=== PATIENT | male | born 1990 | race Hispanic/Latino ===

== ENCOUNTER 2017-12-10 17:58 | Emergency (ER) | payer SELFPAY ==
--- OUTSIDE RECORDS SUMMARY | 2017-12-10 18:01 | XMS REPORT | Clinical Summary ---
:1990 Author Organization [facility] Address [address] [place] [address] Care Team Providers Name Role Phone Asked, No Pcp Primary Care Provider Unavailable Allergies No Known Allergies Current Medications Prescription Sig. Disp. Refills Start Date End Date Status etodolac (LODINE) 500 Take 1 tablet 15 tablet 0 08/08/2017 08/18/2017 MG tablet (500 mg total) by mouth 2 (two) times a day as needed (pain) for up to 10 days. Active Problems Not on file Encounters Date Type Specialty Care Team Description 08/07/2017 - Emergency Emergency Medicine Homero Roa, Flank pain ( Primary Dx); 08/08/2017 MD Tachycardia after 12/09/2016 Social History Tobacco Use Types Packs/Day Years Used Date Light Tobacco Smoker Cigarettes Smokeless Tobacco: Never Used Comments: rarely. Alcohol Use Drinks/Week oz/Week Comments No Sex Assigned at Date Recorded Not on file Last Filed Vital Signs Vital Sign Reading Time Taken Blood Pressure 148/80 08/08/2017 2:00 AM CDT Pulse 91 08/08/2017 2:00 AM CDT Temperature 37.2 C (98.9 F) 08/08/2017 2:00 AM CDT Respiratory Rate 15 08/08/2017 2:00 AM CDT Oxygen Saturation 98% 08/08/2017 2:00 AM CDT Inhaled Oxygen Concentration - - Weight - - Height 182.9 cm (6') 08/07/2017 9:08 PM CDT Body Mass Index - - Plan of Treatment Health Maintenance Due Date Last Done Comments INFLUENZA VACCINE 09/14/2017 Procedures Procedure Name Priority Date/Time Associated Comments Diagnosis URINE DRUGS OF ABUSE STAT 08/08/2017 12:35 Results for this SCREEN AM CDT procedure are in the results section. URINALYSIS SCREEN AND STAT 08/08/2017 12:29 Results for this MICROSCOPY, WITH REFLEX AM CDT procedure are in TO CULTURE the results section. URINE CULTURE STAT 08/08/2017 12:29 Results for this AM CDT procedure are in the results section. CREATINE KINASE, TOTAL STAT 08/08/2017 12:26 Results for this (CPK) AM CDT procedure are in the results section. CT RENAL STONE PROTOCOL STAT 08/07/2017 10:29 Results for this PM CDT procedure are in the results section. XR CHEST 1 VW PORTABLE STAT 08/07/2017 10:01 Results for this PM CDT procedure are in the results section. ZZESTIMATED GFR STAT 08/07/2017 9:40 Results for this PM CDT procedure are in the results section. TROPONIN STAT 08/07/2017 9:40 Results for this PM CDT procedure are in the results section. LIPASE LEVEL STAT 08/07/2017 9:40 Results for this PM CDT procedure are in the results section. COMPREHENSIVE METABOLIC STAT 08/07/2017 9:40 Results for this PANEL PM CDT procedure are in the results section. PARTIAL THROMBOPLASTIN STAT 08/07/2017 9:40 Results for this TIME (PTT) PM CDT procedure are in the results section. PROTHROMBIN TIME WITH STAT 08/07/2017 9:40 Results for this INR PM CDT procedure are in the results section. HC COMPLETE BLD COUNT STAT 08/07/2017 9:40 Results for this W/AUTO DIFF PM CDT procedure are in the results section. ECG 12-LEAD STAT 08/07/2017 9:28 Results for this PM CDT procedure are in the results section. ECG ED PRELIMINARY Routine 08/07/2017 9:15 Results for this INTERPRETATION PM CDT procedure are in the results section. after 12/09/2016 Results Urine drugs of abuse screen (08/08/2017 12:35 AM) Amphetamine screen, urine Negative [facility] DEPARTMENT OF PATHOLOGY AND GENOMIC MEDICINE Methamphetamine screen, Negative [facility] DEPARTMENT OF urine PATHOLOGY AND GENOMIC MEDICINE Barbiturate screen, urine Negative [facility] DEPARTMENT OF PATHOLOGY AND GENOMIC MEDICINE Benzodiazepine screen, urine Negative [facility] DEPARTMENT OF PATHOLOGY AND GENOMIC MEDICINE Cocaine screen, urine Negative [facility] DEPARTMENT OF PATHOLOGY AND GENOMIC MEDICINE Methadone screen, urine NT [facility] DEPARTMENT OF PATHOLOGY AND GENOMIC MEDICINE Opiates screen, urine Negative [facility] DEPARTMENT OF PATHOLOGY AND GENOMIC MEDICINE Phencyclidine screen, urine NT [facility] DEPARTMENT OF PATHOLOGY AND GENOMIC MEDICINE Cannabinoid screen, urine Negative [facility] DEPARTMENT OF PATHOLOGY AND GENOMIC MEDICINE Tricyclic screen, urine NT [facility] DEPARTMENT OF Comment: PATHOLOGY AND GENOMIC Drug screen minimum concentration of detectability MEDICINE Xuoewdqtshgc0325 ng/mL Spqyphjqmfavndul7019 ng/mL Barbiturates 300 ng/mL Wuimtdfcqixuptw000 ng/mL Hydyizk605 ng/mL Hlwfbbfjh930 ng/mL Voqyhvf879 ng/mL Phencyclidine 25 ng/mL Hvohcsahooru33 ng/mL Rcrmcpfcld4255 ng/mL Negative test results indicates presumptive evidence of lack of clinically significant drug concentration in this urine specimen. Positive test results are presumptive evidence of clinically significant drug concentration in this urine specimen. Testing performed for medical purposes only. Specimen Urine Performing Organization Address City/State/Zipcode Phone Number [facility] DEPARTMENT OF PATHOLOGY AND [address] [place] [address] GENOMIC MEDICINE Urinalysis screen and microscopy, with reflex to culture (08/08/2017 12:29 AM) Specimen site Clean catch [facility] DEPARTMENT OF PATHOLOGY AND GENOMIC MEDICINE Color, UA Alyx [facility] DEPARTMENT OF PATHOLOGY AND GENOMIC MEDICINE Appearance, UA Cloudy [facility] DEPARTMENT OF PATHOLOGY AND GENOMIC MEDICINE Specific gravity, UA 1.040 (H) 1.001 - 1.035 [facility] DEPARTMENT OF PATHOLOGY AND GENOMIC MEDICINE pH, UA 5.0 5.0 - 8.5 [facility] DEPARTMENT OF PATHOLOGY AND GENOMIC MEDICINE Protein, UA 1+ (A) Negative [facility] DEPARTMENT OF PATHOLOGY AND GENOMIC MEDICINE Glucose, UA Negative Negative [facility] DEPARTMENT OF PATHOLOGY AND GENOMIC MEDICINE Ketones, UA Negative Negative [facility] DEPARTMENT OF PATHOLOGY AND GENOMIC MEDICINE Bilirubin, UA Negative Negative [facility] DEPARTMENT OF PATHOLOGY AND GENOMIC MEDICINE Blood, UA Negative Negative [facility] DEPARTMENT OF PATHOLOGY AND GENOMIC MEDICINE Nitrite, UA Negative Negative [facility] DEPARTMENT OF PATHOLOGY AND GENOMIC MEDICINE Urobilinogen, UA 2.0 (A) <2.0 [facility] DEPARTMENT OF PATHOLOGY AND GENOMIC MEDICINE Leukocyte esterase, UA Negative Negative [facility] DEPARTMENT OF PATHOLOGY AND GENOMIC MEDICINE WBC, UA 0-5 0 - 1 /HPF [facility] DEPARTMENT OF PATHOLOGY AND GENOMIC MEDICINE RBC, UA 6-10 (H) 0 - 5 /HPF [facility] DEPARTMENT OF PATHOLOGY AND GENOMIC MEDICINE Bacteria, UA None seen None seen [facility] DEPARTMENT OF PATHOLOGY AND GENOMIC MEDICINE Yeast, UA None seen [facility] DEPARTMENT OF PATHOLOGY AND GENOMIC MEDICINE Yeast with pseudohyphae, UA None seen [facility] DEPARTMENT OF PATHOLOGY AND GENOMIC MEDICINE Hyaline casts, UA 11-20 /LPF [facility] DEPARTMENT OF PATHOLOGY AND GENOMIC MEDICINE Specimen Urine Performing Organization Address [facility] Phone Number [facility] DEPARTMENT OF PATHOLOGY AND [address] [place] [address] [address] [place] Urine culture (08/08/2017 12:29 AM) Urine culture SEE COMMENTComment: Bacteriuria [facility] DEPARTMENT OF PATHOLOGY screen negative. AND GENOMIC MEDICINE Specimen Urine Performing Organization Address [facility] Phone Number [facility] DEPARTMENT OF PATHOLOGY AND [id number] [place] [address] [place] [id number] [place] [address] Creatine kinase, total (CPK) (08/08/2017 12:26 AM) Creatine kinase 296 39 - 308 U/L [facility] DEPARTMENT OF PATHOLOGY AND GENOMIC MEDICINE Specimen Plasma specimen Performing Organization Address [facility] Phone Number [facility] DEPARTMENT OF PATHOLOGY AND [address] [place] [address] [address] Renal Stone Protocol (08/07/2017 10:29 PM) Narrative Performed At CT RENAL STONE PROTOCOL [facility] CLINICAL INDICATION:L flank pain TECHNIQUE: Multidetector CT of the abdomen and pelvis was performed following intravenous administration of iodinated contrast with multiplanar reformats. CT scans are performed using radiation dose reduction techniques (iterative reconstruction and/or automated exposure control). Technical factors are evaluated and adjusted to ensure appropriate moderation of exposure. Automated dose management technology is applied to adjust radiation exposure while achieving a diagnostic quality image. COMPARISON:None. FINDINGS: Lung bases:Clear. Liver:Normal. Gallbladder and biliary:The gallbladder is absent. Clips within the gallbladder fossa. Pancreas:Normal. Spleen:Normal. Gastrointestinal:Large and small bowel are normal in caliber. Appendix is visualized and appears normal. Adrenals:Normal. Kidneys and ureters:No mass or hydronephrosis. Urinary bladder:Normal. Lymph nodes:No enlarged lymph nodes in the abdomen or pelvis. Peritoneum:No ascites or free air. Vascular:Unremarkable. Reproductive organs:Normal prostate gland and seminal vesicles. Abdominal wall: Fat-containing inguinal hernias bilaterally. Bones:No acute osseous abnormalities. IMPRESSION: Negative CT for acute pathology within the abdomen and pelvis. [facility]-[id number] Procedure Note Interface, Radiology Results Incoming - 08/07/2017 10:[address] RENAL STONE PROTOCOL CLINICAL INDICATION: L flank pain TECHNIQUE: Multidetector CT of the abdomen and pelvis was performed following intravenous administration of iodinated contrast with multiplanar reformats. CT scans are performed using radiation dose reduction techniques (iterative reconstruction and/or automated exposure control). Technical factors are evaluated and adjusted to ensure appropriate moderation of exposure. Automated dose management technology is applied to adjust radiation exposure while achieving a diagnostic quality image. COMPARISON: None. FINDINGS: Lung bases: Clear. Liver: Normal. Gallbladder and biliary: The gallbladder is absent. Clips within the gallbladder fossa. Pancreas: Normal. Spleen: Normal. Gastrointestinal: Large and small bowel are normal in caliber. Appendix is visualized and appears normal. Adrenals: Normal. Kidneys and ureters: No mass or hydronephrosis. Urinary bladder: Normal. Lymph nodes: No enlarged lymph nodes in the abdomen or pelvis. Peritoneum: No ascites or free air. Vascular: Unremarkable. Reproductive organs: Normal prostate gland and seminal vesicles. Abdominal wall: Fat-containing inguinal hernias bilaterally. Bones: No acute osseous abnormalities. IMPRESSION: Negative CT for acute pathology within the abdomen and pelvis. [facility]-[id number] Performing Organization Address [facility] Phone Number [facility] [address] [place] [address] XR Chest 1 Vw Portable (08/07/2017 10:01 PM) Narrative Performed At EXAMINATION: XR CHEST 1 VW PORTABLE [facility] CLINICAL HISTORY: SOB COMPARISON:10/16/2011 chest x-ray. IMPRESSION: The lungs are clear. No pleural effusion or pneumothorax. The cardiomediastinal silhouette is normal. No acute osseous abnormalities. [facility]-[id number] Procedure Note [facility], Radiology Results Incoming - 08/07/2017 10:05 PM CDT EXAMINATION: XR CHEST 1 VW PORTABLE CLINICAL HISTORY: SOB COMPARISON: 10/16/2011 chest x-ray. IMPRESSION: The lungs are clear. No pleural effusion or pneumothorax. The cardiomediastinal silhouette is normal. No acute osseous abnormalities. [facility]-[id number] Performing Organization Address [facility] Phone Number [employer] [address] [place] [address] Estimated GFR (08/07/2017 9:40 PM) GFR Non Af Amer 81 mL/min/1.73 m2 [facility] DEPARTMENT OF PATHOLOGY AND [facility] GFR Af Amer >90 mL/min/1.73 m2 [facility] DEPARTMENT OF Comment: PATHOLOGY AND [facility] Chronic kidney disease: <60 mL/min/1.73m2 MEDICINE Kidney failure: <15 mL/min/1.73m2 The estimated GFR is calculated from the IDMS-traceable Modification of Diet in Renal Disease Equation. The accuracy of the calculation is poor when the creatinine is normal. Calculated values >90 mL/min/1.73m2 are not reported. This equation has not been validated in children (<18 years), women, the elderly (>70 years), or ethnic groups other than Caucasians and Americans. Specimen Plasma specimen Performing Organization Address [facility] Phone Number [facility] AND [address] [place] [address] [address] Troponin (08/07/2017 9:40 PM) Troponin <0.300 0.000 - 0.300 ng/mL [facility] DEPARTMENT OF Comment: PATHOLOGY AND [facility] 0.30 - 1.49 ng/mlMay indicate increased risk of acute MEDICINE coronary syndrome. >=1.5 ng/mlConsistent with acute myocardial infarction. The diagnostic value of a single normal or non-diagnostic result is questionable.Serial samples at 2-6 hour intervals are required to rule out acute myocardial injury. Specimen Plasma specimen Performing Organization Address [facility] Phone Number [facility] AND [address] [place] [address] [place] [address] [facility] Partial thromboplastin time, activated (08/07/2017 9:40 PM) PTT 30.7 23.0 - 36.0 sec [facility] DEPARTMENT OF Comment: PATHOLOGY AND [facility] PTT therapeutic range for unfractionated heparin is MEDICINE 61.0-112.0 seconds which corresponds to Anti-Xa 0.3-0.7 U/ml. Specimen Blood Performing Organization Address [facility] Phone Number [facility] AND [address] [place] [address] Dr [place], [place] [phone] [place] [address] Prothrombin time with INR (08/07/2017 9:40 PM) Prothrombin time 13.7 12.0 - 15.0 sec [facility] DEPARTMENT OF PATHOLOGY AND GENOMIC MEDICINE INR 1.0 [facility] DEPARTMENT OF Comment: PATHOLOGY AND GENOMIC The International Normalized Ratio (INR) is a therapeutic MEDICINE monitoring tool for patients who are stable on oral anticoagulant therapy. An INR of 2.0-3.0 is suggested for deep vein thrombosis/pulmonary embolism. Specimen Blood Performing Organization Address [facility] Phone Number [facility] DEPARTMENT OF PATHOLOGY AND [address] [place] [address] [place] [address] [facility] CBC with platelet and differential (08/07/2017 9:40 PM) WBC 16.45 (H) 4.50 - 11.00 k/uL [facility] DEPARTMENT OF PATHOLOGY AND GENOMIC MEDICINE RBC 5.50 4.40 - 6.00 m/uL [facility] DEPARTMENT OF PATHOLOGY AND GENOMIC MEDICINE HGB 15.4 14.0 - 18.0 g/dL [facility] DEPARTMENT OF PATHOLOGY AND GENOMIC MEDICINE HCT 45.7 41.0 - 51.0 % [facility] DEPARTMENT OF PATHOLOGY AND GENOMIC MEDICINE MCV 83.1 82.0 - 100.0 fL [facility] DEPARTMENT OF PATHOLOGY AND GENOMIC MEDICINE MCH 28.0 27.0 - 34.0 pg [facility] DEPARTMENT OF PATHOLOGY AND GENOMIC MEDICINE MCHC 33.7 31.0 - 37.0 g/dL [facility] DEPARTMENT OF PATHOLOGY AND GENOMIC MEDICINE RDW - SD 39.9 37.0 - 55.0 fL [facility] DEPARTMENT OF PATHOLOGY AND GENOMIC MEDICINE MPV 10.0 8.8 - 13.2 fL [facility] DEPARTMENT OF PATHOLOGY AND GENOMIC MEDICINE Platelet count 395 150 - 400 k/uL [facility] DEPARTMENT OF PATHOLOGY AND GENOMIC MEDICINE Nucleated RBC 0.00 /100 WBC [facility] DEPARTMENT OF PATHOLOGY AND GENOMIC MEDICINE Neutrophils 70.6 (H) 39.0 - 69.0 % [facility] DEPARTMENT OF PATHOLOGY AND GENOMIC MEDICINE Lymphocytes 20.0 (L) 25.0 - 45.0 % [facility] DEPARTMENT OF PATHOLOGY AND GENOMIC MEDICINE Monocytes 8.1 0.0 - 10.0 % [facility] DEPARTMENT OF PATHOLOGY AND GENOMIC MEDICINE Eosinophils 0.1 0.0 - 5.0 % [facility] DEPARTMENT OF PATHOLOGY AND GENOMIC MEDICINE Basophils 0.7 0.0 - 1.0 % [facility] DEPARTMENT OF PATHOLOGY AND GENOMIC MEDICINE Specimen Blood Performing Organization Address City/[facility]/Zipcode Phone Number [facility] DEPARTMENT OF PATHOLOGY AND [address] [place] [address] [facility] Lipase level (08/07/2017 9:40 PM) Lipase 35 13 - 60 U/L [facility] DEPARTMENT OF PATHOLOGY AND GENOMIC MEDICINE Specimen Plasma specimen Performing Organization Address City/State/Zipcode Phone Number [facility] DEPARTMENT [facility] AND [address] [place] [address] [facility] Comprehensive metabolic panel (08/07/2017 9:40 PM) Sodium 134 (L) 135 - 148 mEq/L [facility] DEPARTMENT OF PATHOLOGY AND GENOMIC MEDICINE Potassium 3.5 3.5 - 5.0 mEq/L [facility] DEPARTMENT OF PATHOLOGY AND GENOMIC MEDICINE Chloride 95 (L) 98 - 112 mEq/L [facility] DEPARTMENT OF PATHOLOGY AND GENOMIC MEDICINE CO2 21 (L) 24 - 31 mEq/L [facility] DEPARTMENT OF PATHOLOGY AND GENOMIC MEDICINE Anion gap 18@ANIO (H) 7 - 15 mEq/L [facility] DEPARTMENT OF PATHOLOGY AND GENOMIC MEDICINE BUN 18 6 - 20 mg/dL [facility] DEPARTMENT OF PATHOLOGY AND GENOMIC MEDICINE Creatinine 1.1 0.7 - 1.2 mg/dL [facility] DEPARTMENT OF PATHOLOGY AND GENOMIC MEDICINE Glucose 121 (H) 65 - 99 mg/dL [facility] DEPARTMENT OF PATHOLOGY AND GENOMIC MEDICINE Calcium 9.8 8.3 - 10.2 mg/dL [facility] DEPARTMENT OF PATHOLOGY AND GENOMIC MEDICINE Protein 8.5 (H) 6.3 - 8.3 g/dL [facility] DEPARTMENT OF Comment: PATHOLOGY AND GENOMIC [place] 4.6-7.0 g/dL MEDICINE 1 week 4.4-7.6 g/dL 7 months-1year5.1-7.3 g/dL 1-2 years5.6-7.5 g/dL >3 years6.0-8.0 g/dL 18-150 6.3-8.3 g/dL Albumin 4.7 3.5 - 5.0 g/dL [facility] DEPARTMENT OF PATHOLOGY AND GENOMIC MEDICINE A/G ratio 1.2 0.7 - 3.8 [facility] DEPARTMENT OF PATHOLOGY AND GENOMIC MEDICINE Alkaline phosphatase 83 40 - 129 U/L [facility] DEPARTMENT OF PATHOLOGY AND GENOMIC MEDICINE AST 32 10 - 50 U/L [facility] DEPARTMENT OF PATHOLOGY AND GENOMIC MEDICINE ALT 45 5 - 50 U/L [facility] DEPARTMENT OF PATHOLOGY AND GENOMIC MEDICINE Total bilirubin 0.7 0.0 - 1.2 mg/dL [facility] DEPARTMENT OF PATHOLOGY AND GENOMIC MEDICINE Specimen Plasma specimen Performing Organization Address City/[facility] Phone Number [facility] DEPARTMENT OF PATHOLOGY AND [address] [place] [address] [place] [address] GENOMIC MEDICINE ECG 12 lead (08/07/2017 9:28 PM) Ventricular rate 122 [facility] Atrial rate 122 [facility] [place] interval 166 [facility] QRSD interval 78 [facility] QT interval 298 [facility] QTC interval 424 [facility] P axis 1 34 [facility] QRS axis 1 61 [facility] T wave axis -1 [facility] EKG impression Sinus tachycardia-Nonspecific T wave [facility] MUSE abnormality-Abnormal ECG-No previous ECGs available-Septal infarct- Performing Organization Address City/[facility] Phone Number [facility] MUSE [address] [place] [address] ECG ED Preliminary Interpretation - NOT AN ORDER (08/07/2017 9:15 PM) Narrative Performed At [facility] La Cruz 08/08/20177:32 AM ECG ED Preliminary Interpretation - Not an Order Performed by: YAKOV QUIÑONEZ Authorized by: HOMERO ROA ECG reviewed by ED Physician in the absence of a hair weaver: yes Previous ECG: Previous ECG:Unavailable Interpretation: Interpretation: abnormal Rate: ECG rate:122 ECG rate assessment: tachycardic Rhythm: Rhythm: sinus rhythm Ectopy: Ectopy: none QRS: QRS axis:Normal Conduction: Conduction: normal ST segments: ST segments:Normal T waves: T waves: non-specific after 12/09/2016
--- OUTSIDE RECORDS SUMMARY | 2017-12-10 18:02 | XMS REPORT | Continuity of Care Document ---
:1990 Author Organization Interface Problems Problem Status Onset Classification Date Comments Source Date Reported Discharge 02/10/20 02/13/2016 [facility]: [facility] Dis[facility] 02/10/20 02/13/2016 [facility] Diagnosis: [facility] DIARRHEA/VOMITIN Active 02/10/20 [facility] Discharge 05/17/19 05/20/2015 [facility] Diagnosis: [address] [place] [address] Lumbar Center paraspinal muscle spasm LOWER BACK PAIN Active 05/17/19 [place] [address] [facility] BACK PAIN Active 09/30/19 [facility] 15 Degenerative Active Problem 02/13/2016 [facility] disc disease, [facility] [place] lumbar Center Medications Medication Details Route Status Patient Ordering Order Source Instructions Provider Date Ondansetron 4 MG 4 mg=1 tab, Active [facility] Disintegrating PO, BID, PRN 2016 Medical Tablet [Zofran] Nausea and Center Vomiting, Dissolve tab under tongue, X 5 day, # 10 tab, 0 Refill(s) Zofran ODT 4 mg, 1 tab, Inactive [facility] Route: PO, 2016 Medical Drug form: Center TABDIS, ONCE, Dosing Weight 104.545, kg, Priority: STAT, Start date: 02/10/16 22:23:00 [employer], Stop date: 02/10/16 22:23:00 CSTNotes: (Same as: Zofran ODT) ibuprofen 800 mg 800 mg=1 tab, Active 05/17[facility] oral tablet PO, Q8H, PRN 2016 Medical Fever or Pain, Center Take with food, # 30 tab, 0 Refill(s) Diazepam 5 MG Oral 5 mg=1 tab, Active 05/17[facility] Tablet [Valium] PO, QID, PRN 2016 Medical Muscle Spasms, Center X 7 day, # 10 tab, 0 Refill(s) Diazepam 5 mg, Route: Inactive 05/17[facility] PO, ONCE, 2016 Medical Dosing Weight [place] 122.727, kg, Priority: STAT, Start date: 05/17/15 19:47:00, Stop date: 05/17/15 19:47:00 Ketorolac 60 mg, 2 mL, Inactive [place] Route: IM, 2015 Medical Drug form: Center INJ, ONCE, Dosing Weight 122.727, kg, Priority: STAT, Start date: 05/17/15 18:33:00, Stop date: 05/17/15 18:33:00Notes: (Same as:Toradol) IV bolus must be given >15 seconds. Give IM administration slowly and deeply into the muscle. Not for use > 4 days MEDICATION WASTE Product Size: 30 mg Product Wasted: 0 mg Methylprednisolone 4 mg, 1 tab, Inactive Route: PO, 2014 [facility] Drug form: TAB, TID, Dosing Weight 124.1, kg, Start date: 10/01/14 17:00:00, Duration: 3 day, Stop date: 10/04/14 13:00:00Notes: (Same as :Medrol) Take with food MethylPREDNISolone See Active Dose Pack 4 mg Instructions, 2014 [facility] oral tablet PO, Daily, Use as directed on label., X 6 day, # 1 Pack, 0 Refill(s)Speci al Instructions: Use as directed on label. Flexeril 10 mg, 1 tab, No Longer Route: PO, Active 2014 [facility] Drug form: TAB, Q8H, PRN Muscle Spasms, Start date: 09/30/14 16:54:00, Duration: 30 day, Stop date: 10/30/14 16:53:00Notes: (Same As: Flexeril) predniSONE 10 mg 10 mg=1 tab, No Longer oral tablet PO, Daily, X Active 2014 [facility] 30 day, # 30 tab, 0 Refill(s) Cyclobenzaprine 10 mg=1 tab, Active hydrochloride 10 PO, TID, PRN 2014 [facility] MG Oral Tablet for spasm, # [Flexeril] 30 tab, 0 Refill(s) Acetaminophen 300 1 tab, PO, Active MG / Codeine Q6H, # 24 tab, 2014 [facility] Phosphate 30 MG 0 Refill(s) Oral Tablet [Tylenol with Codeine #3] Famotidine 20 MG 20 mg, 1 tab, No Longer Oral Tablet Route: PO, Active 2014 [facility] [Pepcid] Drug form: TAB, Q12H, Dosing Weight 124.1, kg, Start date: 09/29/14 21:00:00, Duration: 30 day, Stop date: 10/29/14 9:00:00Notes: (Same as: Pepcid) Dilaudid 1 mg, 0.5 mL, No Longer Route: IV, Active 2014 [facility] Drug form: INJ, Q3H, Dosing Weight 124.1, kg, PRN Pain Score 7-10, Start date: 09/29/14 17:10:00, Duration: 30 day, Stop date: 10/29/14 17:09:00Notes: (Same as: Dilaudid) Saline Flush 0.9% 10 ml, Route: No Longer IVP, Drug Active 2014 [facility] Form: INJ, Dosing Weight 124.1, kg, Q12H, Start date: 09/29/14 9:00:00, Duration: 30 day, Stop date: 10/28/14 21:00:00Notes: (Same as: BD Posiflush) dexamethasone 4 mg, 1 tab, No Longer Route: PO, Active 2014 [facility] Drug form: TAB, Q6Hnow, Start date: 09/29/14 8:00:00, Duration: 30 day, Stop date: 10/29/14 2:00:00Notes: Give with food. (Same As: Decadron) Enoxaparin 40 mg, 0.4 mL, No Longer Route: SUB-Q, Active 2014 [facility] Drug form: INJ, [id number], Dosing Weight 124.1, kg, Start date: 09/29/14 3:00:00, Duration: 30 day, Stop date: 10/28/14 3:00:00Notes: (Same as: Lovenox) Saline Flush 0.9% 10 ml, Route: No Longer IVP, Drug Active 2014 [facility] Form: INJ, Dosing Weight 124.1, kg, PRN, PRN Line Flush, Start date: 09/29/14 2:45:00, Duration: 30 day, Stop date: 10/29/14 2:44:00Notes: (Same as: BD Posiflush) Dexamethasone 4 mg, 1 tab, Inactive Route: PO, 2014 [facility] Drug form: TAB, Q6Hnow, Dosing Weight 124.1, kg, Priority: STAT, Start date: 09/29/14 2:45:00, Duration: 30 day, Stop date: 10/28/14 20:45:00Notes: Give with food. (Same As: Decadron) gabapentin 300 mg, 1 cap, No Longer Route: PO, Active 2014 [facility] Drug form: CAP, Z30Digg, Dosing Weight 124.1, kg, Priority: STAT, Start date: 09/29/14 2:32:00, Duration: 30 day, Stop date: 10/28/14 14:32:00Notes: (Same as: Neurontin) Ondansetron 4 mg, 2 mL, No Longer Route: IVP, Active 2014 [facility] Drug form: INJ, Q4H, Dosing Weight 124.1, kg, PRN Nausea & Vomiting, Start date: 09/29/14 2:32:00, Duration: 30 day, Stop date: 10/29/14 2:31:00Notes: (Same as: Zofran) MEDICATION WASTE Product Size: 4 mg Product Wasted: ___ mg Morphine 3 mg, 0.75 mL, Inactive Route: IVP, 2014 [facility] Drug form: INJ, Q3H, Dosing Weight 124.1, kg, PRN Pain Score 4-6, Start date: 09/29/14 2:32:00, Duration: 30 day, Stop date: 10/29/14 2:31:00Notes: (Same as:MORPhine Sulfate) Acetaminophen 650 mg, 2 tab, No Longer Route: PO, Active 2014 [facility] Drug form: TAB, Q4H, Dosing Weight 124.1, kg, PRN Pain 1-3/Temp > 100.4 F, Start date: 09/29/14 2:32:00, Duration: 30 day, Stop date: 10/29/14 2:31:00Notes: Do not exceed 4 gm/day. (Same as: Tylenol) Allergies, Adverse Reactions, Alerts Substance Category Reaction Severity Reaction Status Date Comments Source type Reported Immunizations Immunization Date Given Site Status Last Updated Comments Source Results Order Name Results Value Reference Date Interpretation Comments Source Range CHEM PANEL Lipase Lvl 135 unit/L 73 - 393 02/09 [facility] CHEM PANEL A/G Ratio 1.0 0.7 - 1.6 02/09 2015 [facility] CHEM PANEL Globulin 4.2 g/dL 2.7 - 4.2 02/09 [facility] CHEM PANEL AGAP 17.7 meq/L 10.0 - 02/09 [facility] 20.0 [facility] CHEM PANEL B/C Ratio 16 6 - 25 02/09 2015 [facility] CHEM PANEL Albumin Lvl 4.3 g/dL 3.5 - 5.0 02/09 [facility] CHEM PANEL ALT 24 unit/L 0 - 65 02/09 2015 [facility] CHEM PANEL Total 8.5 g/dL 6.4 - 8.4 02/09 [facility] CHEM PANEL Bili Total 0.8 mg/dL 0.2 - 1.3 02/[address] CHEM PANEL Alk Phos 97 unit/L 39 - 136 02/09 [facility] CHEM PANEL AST 21 unit/L 0 - 37 02/09 2015 [facility] CHEM PANEL eGFR 121 02/09 Result Comment: The eGFR is calculated using the CKD-EPI formula. In most young, healthy individuals the eGFR will be >90 mL/ min/1.73m2. The eGFR declines with age. An eGFR of 60-89 may be normal in [facility] mL/min/1. some populations, particularly the elderly, for whom the CKD-EPI formula has not been extensively validated. Use of the eGFR is not recommended in the following populations: [address] Individuals with unstable creatinine concentrations, including patients and those with serious co-morbid conditions. Patients with extremes in muscle mass or diet. The data above are obtained from the National Kidney Disease Education Program (NKDEP) which additionally recommends that when the eGFR is used in patients with extremes of body mass index for purposes of drug dosing, the eGFR should be multiplied by the estimated BMI. CHEM PANEL Potassium 3.7 meq/L 3.5 - 5.1 02/09 [facility] CHEM PANEL BUN 14 mg/dL 7 - 22 02/09 [facility] CHEM PANEL Sodium Lvl 135 meq/L 135 - 145 02/09 [facility] CHEM PANEL Glucose Lvl 104 mg/dL 70 - 99 02/09 [facility] CHEM PANEL Creatinine 0.87 mg/dL 0.50 - 02/09 [facility] Lvl 1.40 [facility] CHEM PANEL CO2 21 meq/L 24 - 32 02/09 [facility] CHEM PANEL Calcium Lvl 8.9 mg/dL 8.5 - 10.5 02/09 [facility] CHEM PANEL Chloride Lvl 100 meq/L 95 - 109 02/09 [facility] HEMATOLOGY Basophils # 0.1 K/CMM 0.0 - 0.2 02/09 [facility] HEMATOLOGY Monocytes # 1.5 K/CMM 0.0 - 0.8 02/09 [facility] HEMATOLOGY Lymphocytes 3.1 K/CMM 1.0 - 5.5 02/09 [facility] HEMATOLOGY Segs-Bands # 12.2 K/CMM 1.5 - 8.1 02/09 [facility] HEMATOLOGY Basophils 0.3 % 0.0 - 1.0 02/09 [facility] HEMATOLOGY Monocytes 8.6 % 2.0 - 12.0 02/09 [facility] HEMATOLOGY Eosinophils 0.3 K/CMM 0.0 - 0.5 02/09 [facility] HEMATOLOGY Lymphocytes 17.9 % 20.0 - 02/09 40.0 [facility] HEMATOLOGY Segs 71.3 % 45.0 - 02/09 [place] 75.0 [facility] HEMATOLOGY Eosinophils 1.9 % 0.0 - 4.0 02/09 [facility] HEMATOLOGY MPV 8.4 fL 7.4 - 10.4 02/09 [facility] HEMATOLOGY Hgb 16.6 g/dL 14.0 - 02/09 18.0 [facility] HEMATOLOGY RBC 5.62 M/CMM 4.70 - 02/09 [place] 6.10 [facility] HEMATOLOGY WBC 17.0 K/CMM 3.7 - 10.4 02/09 [facility] HEMATOLOGY MCH 29.6 pg 27.0 - 02/09 [facility] 31.0 /2015 [facility] HEMATOLOGY MCV 85.0 fL 80.0 - 02/09 [facility] 94.0 /2015 [facility] HEMATOLOGY Hct 47.7 % 42.0 - 02/09 [facility] 54.0 /2015 [facility] HEMATOLOGY Platelet 375 K/CMM 133 - 450 02/09 [facility] HEMATOLOGY MCHC 34.8 g/dL 32.0 - 02/09 [facility] 36.0 /2015 [facility] HEMATOLOGY RDW 13.8 % 11.5 - 02/09 [facility] 14. /2015 [facility] ELECTROLYT AGAP 12.4 meq/L 10.0 - 09/30 [facility] 20.0 [facility] ELECTROLYT eGFR 120 09/30 Result Comment: The eGFR is calculated using the CKD-EPI formula. In most young, healthy individuals the eGFR will be >90 mL/ min/1.73m2. The eGFR declines with age. An eGFR of 60-89 may be normal in [facility] mL/min/1. some populations, particularly the elderly, for whom the CKD-EPI formula has not been extensively validated. Use of the eGFR is not recommended in the following populations: [facility] 3m2 Individuals with unstable creatinine concentrations, including patients and those with serious co-morbid conditions. Patients with extremes in muscle mass or diet. The data above are obtained from the National Kidney Disease Education Program (NKDEP) which additionally recommends that when the eGFR is used in patients with extremes of body mass index for purposes of drug dosing, the eGFR should be multiplied by the estimated BMI. ELECTROLYT Calcium Lvl 9.0 mg/dL 8.5 - 10.5 09/30 [facility] ELECTROLYT CO2 26 meq/L 24 - 32 09/30 [facility] ELECTROLYT Chloride Lvl 103 meq/L 95 - 109 09/30 ES [facility] ELECTROLYT Creatinine 0.9 mg/dL 0.5 - 1.4 09/30 [facility] Lvl [facility] ELECTROLYT Potassium 4.4 meq/L 3.5 - 5.1 09/30 [facility] Lvl [facility] ELECTROLYT Sodium Lvl 137 meq/L 135 - 145 09/30 [facility] ELECTROLYT BUN 9 mg/dL 7 - 09/30 [facility] ELECTROLYT Glucose Lvl 184 mg/dL 70 - 99 09/30 [facility] ES /2014 [facility] Hct 43.9 % 42.0 - 09/30 [facility] 54.0 /2014 [facility] Hgb 14.6 g/dL 14.0 - 09/30 [facility] 18.0 [facility] RBC 4.89 M/CMM 4.70 - 09/30 [facility] 6.10 /2014 [facility] MPV 9.3 fL 7.4 - 10.4 09/30 [facility] Platelet 315 K/CMM 133 - 450 09/30 [facility] RDW 13.5 % 11.5 - 09/30 14.5 /2014 [facility] MCHC 33.3 g/dL 32.0 - 09/30 36.0 /2014 [facility] MCV 89.8 fL 80.0 - 09/30 94.0 [facility] MCH 29.9 pg 27.0 - 09/30 31.0 [facility] WBC 22.8 K/CMM 3.7 - 10.4 09/30 [facility] Spine Spine lumbar EXAMINATION: MRI lumbar spine with and without contrast contrast 09/29 - lumbar w/wo /2014 - [facility] w/ contrast MRI contrast MRI HISTORY: Pain with radiculopathy Read by: Dmitry Brandon MD Dictated Date/time: 09/30/14 10:07 Electronically Signed by: Dmitry Brandon MD 09/30/14 11:03 FINAL REPORT TECHNIQUE: Multiplanar multisequence imaging of the lumbar spine was performed with and without administration of intravenous gadolinium. FINDINGS: Five nonrib bearing lumbar vertebra are present. No acute compression fracture or subluxation is seen. No focal marrow signal intensity abnormality is noted. Disc desiccation with mild disc height loss at L1-L2 and L4-L5 is seen. The conus terminates at the thoracolumbar junction. Paravertebral soft tissues are unremarkable. No abnormal enhancement is seen. Findings by level: L1/2: Small annular disc bulge is seen. Facets are intact. There is no spinal canal stenosis or neuroforaminal narrowing. L2/3: Negative for significant disc bulge or protrusion. Facets are intact. There is no spinal canal stenosis or neuroforaminal narrowing. L3/4: Negative for significant disc bulge or protrusion. Facets are intact. There is no spinal canal stenosis or neuroforaminal narrowing. L4/5: 5 mm diffuse disc bulge is seen, producing mild anterior thecal sac effacement. Facets are intact. There is mild spinal canal stenosis with mild bilateral neuroforaminal narrowing. L5/S1: Negative for significant disc bulge or protrusion. Facets are intact. There is no spinal canal stenosis or neuroforaminal narrowing. The nerve roots and cauda equina are unremarkable. IMPRESSION: 1. Degenerative changes of the lumbar spine with mild spinal canal stenosis and mild bilateral neuroforaminal narrowing at L4-L5. 2. No abnormal enhancement throughout the lumbar spine. SL: 16 URINE AND UA 4.0 mg/dL 0.1 - 1.0 09/29 [facility] Urobilinogen /2014 [facility] URINE AND UA Blood Negative Negative 09/29 [facility] (09/29/14 3:50 AM) URINE AND UA Nitrite Negative Negative 09/29 [facility] (09/29/14 3:50 AM) URINE AND UA Bili Negative Negative 09/29 [facility] *NA* (09/29/14 3:50 AM) URINE AND UA Leuk Est Negative Negative 09/29 [facility] (09/29/14 3:50 AM) URINE AND UA WBC 1 /HPF 0 - 5 09/29 [facility] URINE AND UA Mucus Many /LPF None Seen 09/29 [facility] /LPF /2014 [facility] URINE AND UA RBC 2 /HPF 0 - 2 09/29 [facility] URINE AND UA Sq Epi None Seen 09/29 [facility] URINE AND UA Spec Grav 1.029 <=1.030 09/29 [facility] URINE AND UA Protein Negative Negative 09/29 [facility] mg/dL mg/dL [facility] URINE AND UA pH 6.0 5.0 - 8.0 09/29 [facility] URINE AND UA Glucose Negative Negative 09/29 [facility] mg/dL mg/dL [facility] URINE AND UA Ketones Negative Negative 09/29 [facility] mg/dL mg/dL [facility] URINE AND UA Turbidity Clear Clear 09/29 [facility] (09/29/14 3:50 AM) URINE AND UA Color Yellow Yellow 09/29 [facility] *NA* (09/29/14 3:50 AM) CHEM PANEL Magnesium 2.0 mg/dL 1.8 - 2.4 09/29 [place] CHEM PANEL eGFR 94 09/29 Result Comment: The eGFR is calculated using the CKD-EPI formula. In most young, healthy individuals the eGFR will be >90 mL/ min/1.73m2. The eGFR declines with age. An eGFR of 60-89 may be normal in mL/min/1. some populations, particularly the elderly, for whom the CKD-EPI formula has not been extensively validated. Use of the eGFR is not recommended in the following populations: [address] Individuals with unstable creatinine concentrations, including patients and those with serious co-morbid conditions. Patients with extremes in muscle mass or diet. The data above are obtained from the National Kidney Disease Education Program (NKDEP) which additionally recommends that when the eGFR is used in patients with extremes of body mass index for purposes of drug dosing, the eGFR should be multiplied by the estimated BMI. CHEM PANEL Alk Phos 78 unit/L 39 - 136 09/29 [facility] CHEM PANEL Bili Total 0.4 mg/dL 0.2 - 1.3 09/29 [facility] CHEM PANEL AST 15 unit/L 0 - 37 09/29 [facility] CHEM PANEL Albumin Lvl 3.9 g/dL 3.5 - 5.0 09/29 [facility] CHEM PANEL Total 7.6 g/dL 6.4 - 8.4 09/29 [facility] CHEM PANEL ALT 35 unit/L 0 - 65 09/29 [facility] CHEM PANEL Calcium Lvl 8.9 mg/dL 8.5 - 10.5 09/29 [facility] CHEM PANEL CO2 27 meq/L 24 - 32 09/29 [facility] CHEM PANEL Chloride Lvl 105 meq/L 95 - 109 09/29 [facility] CHEM PANEL Potassium 4.1 meq/L 3.5 - 5.1 09/29 [facility] CHEM PANEL Sodium Lvl 140 meq/L 135 - 145 09/29 [facility] CHEM PANEL Creatinine 1.1 mg/dL 0.5 - 1.4 09/29 [facility] CHEM PANEL BUN 16 mg/dL 7 - 22 09/29 [facility] CHEM PANEL Glucose Lvl 147 mg/dL 70 - 99 09/29 [facility] CHEM PANEL A/G Ratio 1.1 0.7 - 1.6 09/29 /2014 [facility] CHEM PANEL B/C Ratio 15 6 - 25 09/29 /2014 [facility] CHEM PANEL Globulin 3.7 g/dL 2.0 - 4.0 09/29 /2014 [facility] CHEM PANEL AGAP 12.1 meq/L 10.0 - 09/29 [facility] 20.0 /2014 [facility] HEMATOLOGY Hgb 14.8 g/dL 14.0 - 09/29 [facility] 18.0 /2014 [facility] HEMATOLOGY RBC 4.98 M/CMM 4.70 - 09/29 [facility] 6.10 /2014 [facility] HEMATOLOGY MCV 88.1 fL 80.0 - 09/29 [facility] 94.0 /2014 [facility] HEMATOLOGY MCH 29.7 pg 27.0 - 09/29 [facility] 31.0 /2014 [facility] HEMATOLOGY WBC 13.5 K/CMM 3.7 - 10.4 09/29 [facility] HEMATOLOGY Hct 43.9 % 42.0 - 09/29 [facility] 54.0 /2014 [facility] HEMATOLOGY RDW 13.6 % 11.5 - 09/29 [facility] 14.5 [facility] HEMATOLOGY MCHC 33.7 g/dL 32.0 - 09/29 [facility] 36.0 /2014 [facility] HEMATOLOGY MPV 9.1 fL 7.4 - 10.4 09/29 /2014 [facility] HEMATOLOGY Platelet 310 K/CMM 133 - 450 09/29 /2014 [facility] HEMATOLOGY Basophils # 0.0 K/CMM 0.0 - 0.2 09/29 [facility] HEMATOLOGY Eosinophils 0.0 K/CMM 0.0 - 0.5 09/29 [facility] # /2014 [facility] HEMATOLOGY Lymphocytes 0.9 K/CMM 1.0 - 5.5 09/29 [facility] # /2014 [facility] HEMATOLOGY Monocytes # 0.1 K/CMM 0.0 - 0.8 09/29 [facility] HEMATOLOGY Basophils 0.2 % 0.0 - 1.0 09/29 [facility] HEMATOLOGY Segs-Bands # 12.4 K/CMM 1.5 - 8.1 09/29 [facility] HEMATOLOGY Segs 91.8 % 45.0 - 09/29 [facility] 75.0 /2014 [facility] HEMATOLOGY Plt Morph Normal 09/29 [facility] (09/29/14 3:19 AM) HEMATOLOGY Monocytes 0.9 % 2.0 - 12.0 09/29 [facility] HEMATOLOGY Lymphocytes 7.0 % 20.0 - 09/29 [facility] 40.0 /2015 [facility] HEMATOLOGY Eosinophils 0.1 % 0.0 - 4.0 09/29 [facility] HEMATOLOGY RBC Morph Normal 09/29 [facility] (09/29/14 3:19 AM) HEMATOLOGY PTT 34.5 s 22.9 - 09/29 35.8 /2014 [facility] Vital Signs Vital Sign Value Date Comments Source Systolic (mm Hg) 142 02/11/2016 [facility] Diastolic (mm Hg) 102 02/11/2016 [facility] Temperature Oral (F) 98.1 F 02/11/2016 [facility] Respitory Rate 18 02/11/2016 [facility] Heart Rate 100 02/11/2016 [facility] Weight 104.545 02/10/2016 [facility] BMI Calculated 32.15 02/10/2016 [facility] Temperature Oral (F) 98.2 F 02/10/2016 [facility] Height 180.34 cm 02/10/2016 [facility] Heart Rate 98 02/10/2016 [facility] Systolic (mm Hg) 136 02/10/2016 [facility] Diastolic (mm Hg) 95 02/10/2016 [facility] Respitory Rate 18 02/10/2016 [facility] Systolic (mm Hg) 138 05/18/2015 [facility] Diastolic (mm Hg) 85 05/18/2015 [facility] Heart Rate 108 05/18/2015 [facility] Respitory Rate 18 05/18/2015 [facility] Temperature Oral (F) 98.4 F 05/18/2015 [facility] Weight 122.727 05/17/2015 [facility] Systolic (mm Hg) 143 05/17/2015 [facility] Diastolic (mm Hg) 98 05/17/2015 [facility] Heart Rate 116 05/17/2015 [facility] Respitory Rate 20 05/17/2015 [facility] Temperature Oral (F) 98.3 F 05/17/2015 [facility] Systolic (mm Hg) 126 10/01/2014 [facility] Diastolic (mm Hg) 79 10/01/2014 [facility] Respitory Rate 18 10/01/2014 [facility] Temperature Oral (F) 97.8 F 10/01/2014 [facility] Heart Rate 86 10/01/2014 [facility] Temperature Oral (F) 97.7 F 10/01/2014 [facility] Systolic (mm Hg) 124 10/01/2014 [facility] Diastolic (mm Hg) 70 10/01/2014 [facility] Respitory Rate 18 10/01/2014 [facility] Heart Rate 90 10/01/2014 [facility] Heart Rate 63 10/01/2014 [facility] Respitory Rate 18 10/01/2014 [facility] Systolic (mm Hg) 122 10/01/2014 [facility] Diastolic (mm Hg) 77 10/01/2014 [facility] Temperature Oral (F) 97.7 F 10/01/2014 [facility] Height 177.8 cm 09/29/2014 [facility] BMI Calculated 39.26 09/29/2014 [facility] Weight 124.1 09/29/2014 [facility] Encounters Location Location Encounter Encounter Reason Attending ADM DC Status Source Details Type Number For Provider Date Date Visit [facility] OBS [id number] Brandon 09/29 10/01 [facility] /2014 [facility] Patient t [facility] Emergency [id number] Kimo 05/16 05/17 [facility] Tone /2015 [facility] Emergency [id number] Tucker Rajput 02/09 02/10 [facility] William /2015 [facility] Procedures Procedure Code Date Perfomer Comments Source
--- OUTSIDE RECORDS SUMMARY | 2017-12-10 18:03 | XMS REPORT | Summary of Care ---
:1990 Author Organization [facility] Address [address], [place] [address]- Encounter HQ Willie_al(FIN) [id number] Date(s): 02/10/16 - 02/10/16 [facility] [address] [place] [address] Professional Services provided by The [facility] [place] [address]- Discharge Diagnosis: N&V (nausea and vomiting) Discharge Diagnosis: Diarrhea Discharge Disposition: Home or Self Care Attending Physician: Tucker Rajput MD Vital Signs Most recent to oldest [Reference Range]: 1 2 Height 180.34 cm (02/10/16 4:31 PM) Temperature Oral [96.4-99.1 DegF] 98.1 DegF 98.2 DegF (02/10/16 10:57 PM) (02/10/16 4:31 PM) Blood Pressure [90-140/60-90 mmHg] 142/102 mmHg 136/95 mmHg *HI* (02/10/16 4:31 PM) (02/10/16 10:57 PM) Respiratory Rate [14-20 BRMIN] 18 BRMIN 18 BRMIN (02/10/16 10:57 PM) (02/10/16 4:31 PM) Peripheral Pulse Rate [60-100 bpm] 100 bpm 98 bpm (02/10/16 10:57 PM) (02/10/16 4:31 PM) Weight 104.545 kg (02/10/16 4:31 PM) Body Mass Index 32.15 m2 (02/10/16 4:31 PM) Problem List Condition Effective Dates Status Health Status Informant Degenerative disc disease, Active lumbar(Confirmed) Allergies, Adverse Reactions, Alerts Substance Reaction Severity Status NKDA Active Medications Zofran ODT 4 mg, 1 tab, Route: PO, Drug form: TABDIS, ONCE, Dosing Weight 104.545, kg, Priority: STAT, Start date: 02/10/16 22:23:00 WELT [employer], Stop date: 02/10/16 22:23:00 W[employer]T [employer] Notes: (Same as: Zofran ODT) Start Date: 02/10/16 Stop Date: 02/10/16 Status: CompletedZofran ODT 4 mg oral tablet, disintegrating 4 mg=1 tab, PO, BID, PRN Nausea and Vomiting, Dissolve tab under tongue, X 5 day , # 10 tab, 0 Refill(s) Start Date: 02/10/16 Stop Date: 02/15/16 Status: Ordered Results ELECTROLYTES Most recent to oldest [Reference Range]: 1 Sodium Lvl [135-145 mEq/L] 135 mEq/L (02/10/16 4:40 PM) Potassium Lvl [3.5-5.1 mEq/L] 3.7 mEq/L (02/10/16 4:40 PM) Chloride Lvl [95-109 mEq/L] 100 mEq/L (02/10/16 4:40 PM) CO2 [24-32 mEq/L] 21 mEq/L *LOW* (02/10/16 4:40 PM) AGAP [10.0-20.0 mEq/L] 17.7 mEq/L (02/10/16 4:40 PM) CHEM PANEL Most recent to oldest [Reference Range]: 1 Creatinine Lvl [0.50-1.40 mg/dL] 0.87 mg/dL (02/10/16 4:40 PM) eGFR 121 mL/min/1.73m2 1 *NA* (02/10/16 4:40 PM) BUN [7-22 mg/dL] 14 mg/dL (02/10/16 4:40 PM) B/C Ratio [6-25] 16 (02/10/16 4:40 PM) Glucose Lvl [70-99 mg/dL] 104 mg/dL *HI* (02/10/16 4:40 PM) Total Protein [6.4-8.4 g/dL] 8.5 g/dL *HI* (02/10/16 4:40 PM) Albumin Lvl [3.5-5.0 g/dL] 4.3 g/dL (02/10/16 4:40 PM) Globulin [2.7-4.2 g/dL] 4.2 g/dL (02/10/16 4:40 PM) A/G Ratio [0.7-1.6] 1.0 (02/10/16 4:40 PM) Calcium Lvl [8.5-10.5 mg/dL] 8.9 mg/dL (02/10/16 4:40 PM) ALT [0-65 unit/L] 24 unit/L (02/10/16 4:40 PM) AST [0-37 unit/L] 21 unit/L (02/10/16 4:40 PM) Alk Phos [39-136 unit/L] 97 unit/L (02/10/16 4:40 PM) Bili Total [0.2-1.3 mg/dL] 0.8 mg/dL (02/10/16 4:40 PM) Lipase Lvl [73-393 unit/L] 135 unit/L (02/10/16 4:40 PM) 1Result Comment: The eGFR is calculated using the CKD-EPI formula. In most young , healthy individualsthe eGFR will be >90 mL/min/1.73m2. The eGFR declines with age. An eGFR of 60-89 may be normal in some populations, particularly the elderly, for whom the CKD-EPI formula has not been extensively validated. Use of the eGFR is not recommended in the following populations: Individuals with unstable creatinine concentrations, including patients and those with serious co-morbid conditions. Patients with extremes in muscle mass or diet. The data above are obtained from the National Kidney Disease Education Program ( NKDEP) which additionally recommends that when the eGFR is used in patients with extremes of body mass index for purposesof drug dosing, the eGFR should be multiplied by the estimated BMI.HEMATOLOGY Most recent to oldest [Reference Range]: 1 WBC [3.7-10.4 K/CMM] 17.0 K/CMM *HI* (02/10/16 4:40 PM) RBC [4.70-6.10 M/CMM] 5.62 M/CMM (02/10/16 4:40 PM) Hgb [14.0-18.0 g/dL] 16.6 g/dL (02/10/16 4:40 PM) Hct [42.0-54.0 %] 47.7 % (02/10/16 4:40 PM) MCV [80.0-94.0 fL] 85.0 fL (02/10/16 4:40 PM) MCH [27.0-31.0 pg] 29.6 pg (02/10/16 4:40 PM) MCHC [32.0-36.0 g/dL] 34.8 g/dL (02/10/16 4:40 PM) RDW [11.5-14.5 %] 13.8 % (02/10/16 4:40 PM) Platelet [133-450 K/CMM] 375 K/CMM (02/10/16 4:40 PM) MPV [7.4-10.4 fL] 8.4 fL (02/10/16 4:40 PM) Segs [45.0-75.0 %] 71.3 % (02/10/16 4:40 PM) Lymphocytes [20.0-40.0 %] 17.9 % *LOW* (02/10/16 4:40 PM) Monocytes [2.0-12.0 %] 8.6 % (02/10/16 4:40 PM) Eosinophils [0.0-4.0 %] 1.9 % (02/10/16 4:40 PM) Basophils [0.0-1.0 %] 0.3 % (02/10/16 4:40 PM) Segs-Bands # [1.5-8.1 K/CMM] 12.2 K/CMM *HI* (02/10/16 4:40 PM) Lymphocytes # [1.0-5.5 K/CMM] 3.1 K/CMM (02/10/16 4:40 PM) Monocytes # [0.0-0.8 K/CMM] 1.5 K/CMM *HI* (02/10/16 4:40 PM) Eosinophils # [0.0-0.5 K/CMM] 0.3 K/CMM (02/10/16 4:40 PM) Basophils # [0.0-0.2 K/CMM] 0.1 K/CMM (02/10/16 4:40 PM) Immunizations No data available for this section Procedures No data available for this section Social History Social History Type Response Substance Abuse Use: None. Employment/School Status: Employed. 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
--- OUTSIDE RECORDS SUMMARY | 2017-12-10 18:03 | XMS REPORT | Summary of Care ---
:1990 Author Organization [facility] Address [address], [place] [address]- Encounter HQ Willie_al(FIN) [id number] Date(s): 05/17/15 - 05/17/15 [facility] [address] [place] [address] Professional Services provided by The [facility] [place] [address]- Discharge Diagnosis: Lumbar paraspinal muscle spasm Discharge Disposition: Home Attending Physician: Kimo Wayne MD Vital Signs Most recent to oldest [Reference Range]: 1 2 Temperature Oral [96.4-99.1 DegF] 98.4 DegF 98.3 DegF (05/17/15 7:25 PM) (05/17/15 6:02 PM) Blood Pressure [90-140/60-90 mmHg] 138/85 mmHg 143/98 mmHg (05/17/15 7:25 PM) *HI* (05/17/15 6:02 PM) Respiratory Rate [14-20 BRMIN] 18 BRMIN 20 BRMIN (05/17/15 7:25 PM) (05/17/15 6:02 PM) Peripheral Pulse Rate [60-100 bpm] 108 bpm 116 bpm *HI* *HI* (05/17/15 7:25 PM) (05/17/15 6:02 PM) Weight 122.727 kg (05/17/15 6:02 PM) Problem List Condition Effective Dates Status Health Status Informant Degenerative disc disease, Active lumbar(Confirmed) Allergies, Adverse Reactions, Alerts Substance Reaction Severity Status NKDA Active Medications diazepam 5 mg, Route: PO, ONCE, Dosing Weight 122.727, kg, Priority: STAT, Start date: 19:47:00, Stop date: 05/17/15 19:47:00 Start Date: 05/17/15 Stop Date: 05/17/15 Status: Completedibuprofen 800 mg oral tablet 800 mg=1 tab, PO, Q8H, PRN Fever or Pain, Take with food, # 30 tab, 0 Refill(s) Start Date: 05/17/15 Stop Date: 05/27/15 Status: OrderedketOROLAC 60 mg, 2 mL, Route: IM, Drug form: INJ, ONCE, Dosing Weight 122.727, kg, Priority: STAT, Start date:05/17/15 18:33:00, Stop date: 05/17/15 18:33:00 Notes: (Same as:Toradol) IV bolus must be given >15 seconds. Give IM administration slowly and deeply into the muscle.Not for use > 4 days MEDICATION WASTE Product Size: 30 mgProduct Wasted: 0 mg Start Date: 05/17/15 Stop Date: 05/17/15 Status: CompletedValium 5 mg oral tablet 5 mg=1 tab, PO, QID, PRN Muscle Spasms, X 7 day, # 10 tab, 0 Refill(s) Start Date: 05/17/15 Stop Date: 05/24/15 Status: Ordered Results No data available for this section Immunizations No data available for this section Procedures No data available for this section Social History Social History Type Response Substance Abuse Use: None. Employment/School Status: Employed. 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
--- OUTSIDE RECORDS SUMMARY | 2017-12-10 18:03 | XMS REPORT ---
:1990 Author Organization [facility] Address [address] [place] [address] [place] [address] Care Team Providers Name Role Phone Unavailable Unavailable Unavailable Problems This patient has no known problems. Allergies, Adverse Reactions, Alerts This patient has no known allergies or adverse reactions. Medications This patient has no known medications. Encounters Start End Encounter Admission Attending Care Care Encounter Date/Time Date/Time Type Type Clinicians Facility Department ID 2017-07-29 2017-07-29 Outpatient [facility] [id number] 00:00:00 00:00:00 2017-07-25 2017-07-25 Outpatient [facility] [id number] 10:44:59 10:44:59 2017-07-13 2017-07-13 Outpatient [facility] [id number] 10:11:58 10:11:58 2017-06-28 2017-06-28 Outpatient [facility] [id number] 08:22:27 08:22:27 2017-06-23 2017-06-23 Outpatient [facility] [id number] 08:21:10 08:21:10 2017-06-21 2017-06-21 Outpatient [facility] [id number] 10:07:45 10:07:45
--- OUTSIDE RECORDS SUMMARY | 2017-12-10 18:03 | XMS REPORT | Summary of Care ---
:1990 Author Organization [facility] Address [address], [place] [address]- Encounter HQ Levonr_al(FIN) [id number] Date(s): 09/29/14 - 10/01/14 [facility] [address] [place] [address]- Discharge Disposition: Home Attending Physician: Brandon Ruiz MD Admitting Physician: Brandon Ruiz MD Vital Signs Most recent to oldest [Reference Range]: 1 2 3 Height 177.8 cm (09/29/14 12:45 AM) Most recent to oldest 1 2 3 [Reference Range]: Temperature Oral [96.4-99.1 97.8 DegF 97.7 DegF 97.7 DegF DegF] (10/01/14 4:00 PM) (10/01/14 12:00 PM) (10/01/14 8:00 AM) Most recent to oldest 1 2 3 [Reference Range]: Blood Pressure [90-140/60-90 126/79 mmHg 124/70 mmHg 122/77 mmHg mmHg] (10/01/14 4:00 PM) (10/01/14 12:00 PM) (10/01/14 8:00 AM) Most recent to oldest 1 2 3 [Reference Range]: Respiratory Rate [14-20 BRMIN] 18 BRMIN 18 BRMIN 18 BRMIN (10/01/14 4:00 PM) (10/01/14 12:00 PM) (10/01/14 8:00 AM) Most recent to oldest 1 2 3 [Reference Range]: Peripheral Pulse Rate [60-100 86 bpm 90 bpm 63 bpm bpm] (10/01/14 4:00 PM) (10/01/14 12:00 PM) (10/01/14 8:00 AM) Most recent to oldest [Reference Range]: 1 2 3 Weight 124.1 kg (09/29/14 12:45 AM) Most recent to oldest [Reference Range]: 1 2 3 Body Mass Index 39.26 m2 (09/29/14 12:45 AM) Problem List No data available for this section Allergies, Adverse Reactions, Alerts Substance Reaction Severity Status NKDA Active Medications acetaminophen 650 mg, 2 tab, Route: PO, Drug form: TAB, Q4H, Dosing Weight 124.1, kg, PRN Pain 1-3/Temp > 100.4 F, Start date: 09/29/14 2:32:00, Duration: 30 day, Stop date: 10/29/14 2:31:00 Notes: Do not exceed 4 gm/day. (Same as: Tylenol) Start Date: 09/29/14 Stop Date: 10/01/14 Status: Discontinueddexamethasone 4 mg, 1 tab, Route: PO, Drug form: TAB, Q6Hnow, Dosing Weight 124.1, kg, Priority: STAT, Start date:09/29/14 2:45:00, Duration: 30 day, Stop date: 20:45:00 Notes: Give with food.(Same As: Decadron) Start Date: 09/29/14 Stop Date: 09/29/14 Status: Deleteddexamethasone 10 mg, 1 mL, Route: IVP, Drug form: INJ, ONCE, Dosing Weight 124.1, kg, Priority : STAT, Start date: 09/29/14 2:45:00, Stop date: 09/29/14 2:45:00 Notes: MEDICATION WASTE Product Size: 10 mgProduct Wasted: ___ mg Start Date: 09/29/14 Stop Date: 09/29/14 Status: Completeddexamethasone 4 mg, 1 tab, Route: PO, Drug form: TAB, Q6Hnow, Start date: 09/29/14 8:00:00, Duration: 30 day, Stopdate: 10/29/14 2:00:00 Notes: Give with food.(Same As: Decadron) Start Date: 09/29/14 Stop Date: 10/01/14 Status: DiscontinuedDilaudid 1 mg, 0.5 mL, Route: IV, Drug form: INJ, Q3H, Dosing Weight 124.1, kg, PRN Pain Score 7-10, Start date: 09/29/14 17:10:00, Duration: 30 day, Stop date: 17:09:00 Notes: (Same as: Dilaudid) Start Date: 09/29/14 Stop Date: 10/01/14 Status: Discontinuedenoxaparin 40 mg, 0.4 mL, Route: SUB-Q, Drug form: INJ, [id number], Dosing Weight 124.1, kg, Start date: 153:00:00, Duration: 30 day, Stop date: 10/28/14 3:00:00 Notes: (Same as: Lovenox) Start Date: 09/29/14 Stop Date: 10/01/14 Status: DiscontinuedFlexeril 10 mg, 1 tab, Route: PO, Drug form: TAB, Q8H, PRN Muscle Spasms, Start date: 16:54:00, Duration: 30 day, Stop date: 10/30/14 16:53:00 Notes: (Same As: Flexeril) Start Date: 09/30/14 Stop Date: 10/01/14 Status: DiscontinuedFlexeril 10 mg oral tablet 10 mg=1 tab, PO, TID, PRN for spasm, # 30 tab, 0 Refill(s) Start Date: 09/30/14 Stop Date: 10/16/14 Status: Orderedgabapentin 300 mg, 1 cap, Route: PO, Drug form: CAP, [id number], Dosing Weight 124.1, kg, Priority: STAT, Start date: 09/29/14 2:32:00, Duration: 30 day, Stop date: 10/28 14:32:00 Notes: (Same as: Neurontin) Start Date: 09/29/14 Stop Date: 10/01/14 Status: DiscontinuedMethylPREDNISolone Dose Pack 4 mg oral tablet See Instructions, PO, Daily, Use as directed on label., X 6 day, # 1 Pack, 0 Refill(s) Special Instructions: Use as directed on label. Start Date: 10/01/14 Stop Date: 10/07/14 Status: OrderedmethylPREDNISolone ORAL tab 4 mg, 1 tab, Route: PO, Drug form: TAB, TID, Dosing Weight 124.1, kg, Start date : 10/01/14 17:00:00,Duration: 3 day, Stop date: 10/04/14 13:00:00 Notes: (Same as :Medrol) Take with food Start Date: 10/01/14 Stop Date: 10/01/14 Status: Discontinuedmorphine Sulfate 3 mg, 0.75 mL, Route: IVP, Drug form: INJ, Q3H, Dosing Weight 124.1, kg, PRN Pain Score 4-6, Start date: 09/29/14 2:32:00, Duration: 30 day, Stop date: 10/29 2:31:00 Notes: (Same as:MORPhine Sulfate) Start Date: 09/29/14 Stop Date: 09/29/14 Status: Discontinuedondansetron 4 mg, 2 mL, Route: IVP, Drug form: INJ, Q4H, Dosing Weight 124.1, kg, PRN Nausea & Vomiting, Start date: 09/29/14 2:32:00, Duration: 30 day, Stop date : 10/29/14 2:31:00 Notes: (Same as: Kirsten) MEDICATION WASTE Product Size: 4 mgProduct Wasted: ___ mg Start Date: 09/29/14 Stop Date: 10/01/14 Status: DiscontinuedPepcid 20 mg oral tablet 20 mg, 1 tab, Route: PO, Drug form: TAB, Q12H, Dosing Weight 124.1, kg, Start date: 09/29/14 21:00:00, Duration: 30 day, Stop date: 10/29/14 9:00:00 Notes: (Same as: Pepcid) Start Date: 09/29/14 Stop Date: 10/01/14 Status: DiscontinuedpredniSONE 10 mg oral tablet 10 mg=1 tab, PO, Daily, X 30 day, # 30 tab, 0 Refill(s) Start Date: 09/30/14 Stop Date: 10/01/14 Status: DiscontinuedSaline Flush 0.9% 10 ml, Route: IVP, Drug Form: INJ, Dosing Weight 124.1, kg, PRN, PRN Line Flush , Start date: 09/29/14 2:45:00, Duration: 30 day, Stop date: 10/29/14 2:44:00 Notes: (Same as: BD Posiflush) Start Date: 09/29/14 Stop Date: 10/01/14 Status: DiscontinuedSaline Flush 0.9% 10 ml, Route: IVP, Drug Form: INJ, Dosing Weight 124.1, kg, Q12H, Start date: 9:00:00, Duration: 30 day, Stop date: 10/28/14 21:00:00 Notes: (Same as: BD Posiflush) Start Date: 09/29/14 Stop Date: 10/01/14 Status: DiscontinuedTylenol with Codeine #3 oral tablet 1 tab, PO, Q6H, # 24 tab, 0 Refill(s) Start Date: 09/30/14 Stop Date: 10/10/14 Status: Ordered Results ELECTROLYTES Most recent to oldest [Reference Range]: 1 2 Sodium Lvl [135-145 mEq/L] 137 mEq/L 140 mEq/L (09/30/14 4:12 AM) (09/29/14 3:19 AM) Potassium Lvl [3.5-5.1 mEq/L] 4.4 mEq/L 4.1 mEq/L (09/30/14 4:12 AM) (09/29/14 3:19 AM) Chloride Lvl [95-109 mEq/L] 103 mEq/L 105 mEq/L (09/30/14 4:12 AM) (09/29/14 3:19 AM) CO2 [24-32 mEq/L] 26 mEq/L 27 mEq/L (09/30/14 4:12 AM) (09/29/14 3:19 AM) AGAP [10.0-20.0 mEq/L] 12.4 mEq/L 12.1 mEq/L (09/30/14 4:12 AM) (09/29/14 3:19 AM) CHEM PANEL Most recent to oldest [Reference Range]: 1 2 Creatinine Lvl [0.5-1.4 mg/dL] 0.9 mg/dL 1.1 mg/dL (09/30/14 4:12 AM) (09/29/14 3:19 AM) eGFR 120 mL/min/1.73m2 1 94 mL/min/1.73m2 2 *NA* *NA* (8/17/15 4:12 AM) (09/29/14 3:19 AM) BUN [7-22 mg/dL] 9 mg/dL 16 mg/dL (09/30/14 4:12 AM) (09/29/14 3:19 AM) B/C Ratio [6-25] 15 (09/29/14 3:19 AM) Glucose Lvl [70-99 mg/dL] 184 mg/dL 147 mg/dL *HI* *HI* (09/30/14 4:12 AM) (09/29/14 3:19 AM) Total Protein [6.4-8.4 g/dL] 7.6 g/dL (09/29/14 3:19 AM) Albumin Lvl [3.5-5.0 g/dL] 3.9 g/dL (09/29/14 3:19 AM) Globulin [2.0-4.0 g/dL] 3.7 g/dL (09/29/14 3:19 AM) A/G Ratio [0.7-1.6] 1.1 (09/29/14 3:19 AM) Calcium Lvl [8.5-10.5 mg/dL] 9.0 mg/dL 8.9 mg/dL (09/30/14 4:12 AM) (09/29/14 3:19 AM) Magnesium Lvl [1.8-2.4 mg/dL] 2.0 mg/dL (09/29/14 3:19 AM) ALT [0-65 unit/L] 35 unit/L (09/29/14 3:19 AM) AST [0-37 unit/L] 15 unit/L (09/29/14 3:19 AM) Alk Phos [39-136 unit/L] 78 unit/L (09/29/14 3:19 AM) Bili Total [0.2-1.3 mg/dL] 0.4 mg/dL (09/29/14 3:19 AM) 1Result Comment: The eGFR is calculated using [...] eGFR should be multiplied by the estimated BMI.2Result Comment: The eGFR is calculated using the CKD-EPI formula. In most young, healthy individualsthe eGFR will be >90 mL/ min/1.73m2. The [...] eGFR should be multiplied by the estimated BMI.URINE AND STOOL Most recent to oldest [Reference Range]: 1 2 UA Turbidity [Clear] Clear (09/29/14 3:50 AM) UA Color [Yellow] Yellow *NA* (09/29/14 3:50 AM) UA pH [5.0-8.0] 6.0 (09/29/14 3:50 AM) UA Spec Grav [<=1.030] 1.029 (09/29/14 3:50 AM) UA Glucose [Negative mg/dL] Negative mg/dL *NA* (09/29/14 3:50 AM) UA Blood [Negative] Negative (09/29/14 3:50 AM) UA Ketones [Negative mg/dL] Negative mg/dL *NA* (09/29/14 3:50 AM) UA Protein [Negative mg/dL] Negative mg/dL (09/29/14 3:50 AM) UA Urobilinogen [0.1-1.0 mg/dL] 4.0 mg/dL *HI* (09/29/14 3:50 AM) UA Bili [Negative] Negative *NA* (8/16/15 3:50 AM) UA Leuk Est [Negative] Negative (09/29/14 3:50 AM) UA Nitrite [Negative] Negative (09/29/14 3:50 AM) UA WBC [0-5 /HPF] 1 /HPF (09/29/14 3:50 AM) UA RBC [0-2 /HPF] 2 /HPF (09/29/14 3:50 AM) UA Sq Epi None Seen *NA* (09/29/14 3:50 AM) UA Mucus [None Seen /LPF] Many /LPF *ABN* (09/29/14 3:50 AM) HEMATOLOGY Most recent to oldest [Reference Range]: 1 2 WBC [3.7-10.4 K/CMM] 22.8 K/CMM 13.5 K/CMM *HI* *HI* (09/30/14 4:12 AM) (09/29/14 3:19 AM) RBC [4.70-6.10 M/CMM] 4.89 M/CMM 4.98 M/CMM (09/30/14 4:12 AM) (09/29/14 3:19 AM) Hgb [14.0-18.0 g/dL] 14.6 g/dL 14.8 g/dL (09/30/14 4:12 AM) (09/29/14 3:19 AM) Hct [42.0-54.0 %] 43.9 % 43.9 % (09/30/14 4:12 AM) (09/29/14 3:19 AM) MCV [80.0-94.0 fL] 89.8 fL 88.1 fL (09/30/14 4:12 AM) (09/29/14 3:19 AM) MCH [27.0-31.0 pg] 29.9 pg 29.7 pg (09/30/14 4:12 AM) (09/29/14 3:19 AM) MCHC [32.0-36.0 g/dL] 33.3 g/dL 33.7 g/dL (09/30/14 4:12 AM) (09/29/14 3:19 AM) RDW [11.5-14.5 %] 13.5 % 13.6 % (09/30/14 4:12 AM) (09/29/14 3:19 AM) Platelet [133-450 K/CMM] 315 K/CMM 310 K/CMM (09/30/14 4:12 AM) (09/29/14 3:19 AM) MPV [7.4-10.4 fL] 9.3 fL 9.1 fL (09/30/14 4:12 AM) (09/29/14 3:19 AM) Segs [45.0-75.0 %] 91.8 % *HI* (09/29/14 3:19 AM) Lymphocytes [20.0-40.0 %] 7.0 % *LOW* (09/29/14 3:19 AM) Monocytes [2.0-12.0 %] 0.9 % *LOW* (09/29/14 3:19 AM) Eosinophils [0.0-4.0 %] 0.1 % (09/29/14 3:19 AM) Basophils [0.0-1.0 %] 0.2 % (09/29/14 3:19 AM) Segs-Bands # [1.5-8.1 K/CMM] 12.4 K/CMM *HI* (09/29/14 3:19 AM) Lymphocytes # [1.0-5.5 K/CMM] 0.9 K/CMM *LOW* (09/29/14 3:19 AM) Monocytes # [0.0-0.8 K/CMM] 0.1 K/CMM (09/29/14 3:19 AM) Eosinophils # [0.0-0.5 K/CMM] 0.0 K/CMM (09/29/14 3:19 AM) Basophils # [0.0-0.2 K/CMM] 0.0 K/CMM (09/29/14 3:19 AM) RBC Morph Normal (09/29/14 3:19 AM) Plt Morph Normal (09/29/14 3:19 AM) PTT [22.9-35.8 seconds] 34.5 seconds (09/29/14 3:19 AM) Immunizations No data available for this section Procedures No data available for this section Social History Social History Type Response Substance Abuse Use: None. Employment/School Status: Employed. 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 1.intractable back pain-- seen by neurosurgery-- cleared to go, d/c put in yesterday but pt was in so much pain, could not particpate with PT, neurology consult done, awaiting eval, i added flexeril to regimen, no improvement, Deconditioning-- PT eval/treat dvt ppx leucocytosis-- wbc 22.8, poss sec to Iv steroids elevated glucose--sec to IV steroids Extracted from: Title: Neurology Consult Author: Lotus Mueller Date: 10/01/14 Impression and Plan 24-year-old right-handed male with no known PMHx. He presented to [facility] 09/29/14 with CC of severe low back pain with radiation into BLE with associated "numbness, pain, weakness", and hyperesthesias. To day, the patient reports his back pain was noticed when he woke up one morning about 1.5 weeks ago and it gradually got worse, involving his BLE. He reports associated BUE weakness, headache, and overal l generalized weakness. Denies loss of bowel or bladder function, hemiparesis or hemiparesthesias, nuchal rigidity, recent fevers or chills, abdominal pain, nausea, vomiting, visual changes. Neurology w as consulted for low back pain with radiation to BLE. Recommendations: 1) Low back pain, likely muscular in nature -Discussed with Dr. Lee, will order methylprednisolone 4mg PO QD x 3 days, will d/c dexamethasone -Physical exam findings and MRI lumbar spine do not suggest significant lumbar radiculopathy -Recommend to proceed with PT as tolerated -Recommend conservative treatment with movement as tolerated to prevent deconditioning -Recommend follow up with neurology as outpatient for further management -MRI lumbar spine: Degenerative changes of the lumbar spine with mild spinal canal stenosis and mild bilateral neuroforaminal narrowing at L4-L5. -Patient evaluated by [facility], Dr. Holley, MRI lumbar spine reviewed and patient evaluated, does not feel there is any significant lumbar radiculopathy or surgical indication 2) DVT/GI prophylaxis -Lovenox/PPI
[2017-12-10] MEDS ORDERED: HYDROCODONE/APAP 7.5/325 MG TAB ONE (18:54)
--- NOTE | 2017-12-10 19:19 | RAD REPORT ---
EXAM DESCRIPTION: RAD - Foot Right 3 View - 12/10/2017 7:01 pm CLINICAL HISTORY: Right foot pain status post injury FINDINGS: No fracture or dislocation is seen. No bone or joint abnormality is seen
--- NOTE | 2017-12-10 19:33 | ER ---
Nurse's Notes [facility] Name: Jatinder Romero Age: 27 yrs Sex: Male : 1990 Arrival Date: 12/10/2017 Time: 18:02 Bed 23 Private MD: None, None Diagnosis: Cellulitis of right lower limb Presentation: 12/10 18:07 Presenting complaint: Patient states: Right foot cramping this AM. No known injury. aj Transition of care: patient was not received from another setting of care. Onset of symptoms was December 10, 2017. Risk Assessment: Do you want to hurt yourself or someone else? Patient reports no desire to harm self or others. Initial Sepsis Screen: Does the patient meet any 2 criteria? No. Patient's initial sepsis screen is negative. Does the patient have a suspected source of infection? No. Patient's initial sepsis screen is negative. Care prior to arrival: None. 18:07 Method Of Arrival: Wheelchair aj 18:07 Acuity: ADRIA 4 aj Triage Assessment: 18:09 General: Appears in no apparent distress. comfortable, Behavior is calm, cooperative, aj appropriate for age. Pain: Complains of pain in right foot. Neuro: Level of Consciousness is awake, alert, obeys commands, Oriented to person, place, time, situation, Appropriate for age. Respiratory: Airway is patent Respiratory effort is even, unlabored, Respiratory pattern is regular, symmetrical. Derm: Skin is intact, is healthy with good turgor, Skin is pink, warm \T\ dry. normal. Musculoskeletal: Reports pain in right foot. Historical: - Allergies: 18:09 No Known Allergies; aj - Home Meds: 18:09 None [Active]; aj - PMHx: 18:09 None; aj - PSHx: 18:09 Cholecystectomy; aj - Immunization history:: Adult Immunizations up to date. - Social history:: Smoking status: Patient/guardian denies using tobacco, Patient uses alcohol, occasionally. street drugs, marijuana. - Ebola Screening: : Patient negative for fever greater than or equal to 101.5 degrees Fahrenheit, and additional compatible Ebola Virus Disease symptoms Patient denies exposure to infectious person Patient denies travel to an Ebola-affected area in the 21 days before illness onset No symptoms or risks identified at this time. Screenin:24 Abuse screen: Denies threats or abuse. Nutritional screening: No deficits noted. tl3 Tuberculosis screening: No symptoms or risk factors identified. Fall Risk None identified. Assessment: 18:24 General: Appears uncomfortable, Behavior is calm, cooperative, appropriate for age. tl3 Pain: Complains of pain in right foot Pain currently is 10 out of 10 on a pain scale. Neuro: Level of Consciousness is awake, alert, obeys commands, Oriented to person, place, time, situation, Appropriate for age. Cardiovascular: Patient's skin is warm and dry. Respiratory: Airway is patent Respiratory effort is even, unlabored, Respiratory pattern is regular, symmetrical. GI: No signs and/or symptoms were reported involving the gastrointestinal system. : No signs and/or symptoms were reported regarding the genitourinary system. EENT: No signs and/or symptoms were reported regarding the EENT system. Derm: No signs and/or symptoms reported regarding the dermatologic system. Musculoskeletal: Reports pain in right foot since this am, no known injuries. Pain is 10 out of 10 on a pain scale. Vital Signs: 18:09 BP 138 / 105; Pulse 85; Resp 20; Temp 99.5; Pulse Ox 98% on R/A; Weight 133.81 kg; aj Height 6 ft. 0 in. (182.88 cm); 18:24 BP 142 / 92; Pulse 85; Resp 18; Pulse Ox 97% ; tl3 19:49 BP 146 / 102; Pulse 85; Resp 18; Temp 98.0(O); Pulse Ox 100% on R/A; Pain 8/10; fc 18:09 Body Mass Index 40.01 (133.81 kg, 182.88 cm) ED Course: 18:02 Patient arrived in ED. mr 18:02 None, None is Private Physician. mr 18:05 Cortney Shaw FNP-C [facility]. kb 18:05 Issa Jo MD is Attending Physician. kb 18:09 Triage completed. aj 18:09 Arm band placed on right wrist. Patient placed in an exam room. aj 18:21 Manuela Jacobs, RN is Primary Nurse. tl3 18:24 Patient has correct armband on for positive identification. Bed in low position. Call tl3 light in reach. Side rails up X 1. Adult w/ patient. Pulse ox on. NIBP on. 18:24 No provider procedures requiring assistance completed. Patient did not have IV access tl3 during this emergency room visit. 19:01 Foot Right 3 View XRAY In Process Unspecified. EDMS Administered Medications: 18:45 Drug: [place] (7.5 mg-325 mg) 1 tabs Route: PO; tl3 19:49 Follow up: Response: No adverse reaction; Pain is decreased fc Outcome: 19:32 Discharge ordered by MD. tubbs 19:48 Discharged to home via wheelchair, with family. fc 19:48 Condition: good 19:48 Discharge instructions given to patient, family, Instructed on discharge instructions, follow up and referral plans. no drinking with medication, no driving heavy equipment, medication usage, follow up for bp Demonstrated understanding of instructions, follow-up care, medications, Prescriptions given X 2. 19:49 Patient left the ED. fc Signatures: Dispatcher [employer] EDMS Cortney Shaw, EBERC BLUE LEATHER SETTER-Neda Hooker RN RN aj Rivera, Mary mr Elyse Wallace RN RN fc Lowrey, Tammy, RN RN tl3 Corrections: (The following items were deleted from the chart) 18:27 18:24 Musculoskeletal: No signs and/or symptoms reported regarding the musculoskeletal tl3 system. tl3
--- NOTE | 2017-12-10 19:33 | EDPHYS ---
Physician Documentation [facility] Name: Jatinder Romero Age: 27 yrs Sex: Male : 1990 Arrival Date: 12/10/2017 Time: 18:02 Bed 23 Private MD: None, None ED Physician Issa Jo HPI: 12/10 18:18 This 27 yrs old Male presents to ER via Wheelchair with complaints of Foot kb Pain. 18:18 The patient presents with pain, that is acute, swelling, tenderness. The complaints kb affect the right foot. Context: The problem was sustained at home, resulted from an unknown cause, the patient can fully bear weight, the patient is able to ambulate. Onset: The symptoms/episode began/occurred this morning, at 02:00. Modifying factors: The symptoms are alleviated by nothing, the symptoms are aggravated by weight bearing. Associated signs and symptoms: Pertinent positives: swelling, Pertinent negatives: calf tenderness, fever, nausea, numbness, rash, tingling, vomiting, warmth, weakness. Severity of symptoms: At their worst the symptoms were mild, in the emergency department the symptoms are unchanged. The patient has not experienced similar symptoms in the past. The patient has not recently seen a physician. Historical: - Allergies: 18:09 No Known Allergies; aj - Home Meds: 18:09 None [Active]; aj - PMHx: 18:09 None; aj - PSHx: 18:09 Cholecystectomy; aj - Immunization history:: Adult Immunizations up to date. - Social history:: Smoking status: Patient/guardian denies using tobacco, Patient uses alcohol, occasionally. street drugs, marijuana. - Ebola Screening: : Patient negative for fever greater than or equal to 101.5 degrees Fahrenheit, and additional compatible Ebola Virus Disease symptoms Patient denies exposure to infectious person Patient denies travel to an Ebola-affected area in the 21 days before illness onset No symptoms or risks identified at this time. ROS: 18:16 Constitutional: Negative for fever, chills, and weight loss, Cardiovascular: Negative kb for chest pain, palpitations, and edema, Respiratory: Negative for shortness of breath, cough, wheezing, and pleuritic chest pain, Abdomen/GI: Negative for abdominal pain, nausea, vomiting, diarrhea, and constipation, Skin: Negative for injury, rash, and discoloration, Neuro: Negative for headache, weakness, numbness, tingling, and seizure. 18:16 MS/extremity: Positive for erythema, pain, swelling, tenderness, of the right foot. Exam: 18:16 Constitutional: This is a well developed, well nourished patient who is awake, alert, kb and in no acute distress. Head/Face: Normocephalic, atraumatic. Chest/axilla: Normal chest wall appearance and motion. Nontender with no deformity. No lesions are appreciated. Cardiovascular: Regular rate and rhythm with a normal S1 and S2. No gallops, murmurs, or rubs. Normal PMI, no JVD. No pulse deficits. Respiratory: Lungs have equal breath sounds bilaterally, clear to auscultation and percussion. No rales, rhonchi or wheezes noted. No increased work of breathing, no retractions or nasal flaring. Abdomen/GI: Soft, non-tender, with normal bowel sounds. No distension or tympany. No guarding or rebound. No evidence of tenderness throughout. Neuro: Awake and alert, GCS 15, oriented to person, place, time, and situation. Cranial nerves II-XII grossly intact. Motor strength 5/5 in all extremities. Sensory grossly intact. Cerebellar exam normal. Normal gait. 18:16 Musculoskeletal/extremity: Extremities: grossly normal except: noted in the right foot: erythema, pain, swelling, tenderness, ROM: limited active range of motion due to pain, in the right foot, Circulation is intact in all extremities. Sensation intact. Weight bearing: able to fully bear weight. Vital Signs: 18:09 BP 138 / 105; Pulse 85; Resp 20; Temp 99.5; Pulse Ox 98% on R/A; Weight 133.81 kg; aj Height 6 ft. 0 in. (182.88 cm); 18:24 BP 142 / 92; Pulse 85; Resp 18; Pulse Ox 97% ; tl3 19:49 BP 146 / 102; Pulse 85; Resp 18; Temp 98.0(O); Pulse Ox 100% on R/A; Pain 8/10; fc 18:09 Body Mass Index 40.01 (133.81 kg, 182.88 cm) aj MDM: 18:12 Patient medically screened. kb 18:16 Data reviewed: vital signs, nurses notes. Data interpreted: Pulse oximetry: on room air kb is 98 %. Interpretation: normal. 19:29 Counseling: I had a detailed discussion with the patient and/or guardian regarding: the kb historical points, exam findings, and any diagnostic results supporting the discharge/admit diagnosis, radiology results, the need for outpatient follow up, a family practitioner, to return to the emergency department if symptoms worsen or persist or if there are any questions or concerns that arise at home. 12/10 18:16 Order name: Foot Right 3 View XRAY; Complete Time: :27 kb Administered Medications: 18:45 Drug: [place] (7.5 mg-325 mg) 1 tabs Route: PO; tl3 19:49 Follow up: Response: No adverse reaction; Pain is decreased fc Disposition: 12/10/17 19:32 Discharged to Home. Impression: Cellulitis of right lower limb. - Condition is Stable. - Discharge Instructions: Cellulitis, Adult, [id number]. - Prescriptions for Bactrim DS 800- 160 mg Oral Tablet - take 1 tablet by ORAL route every 12 hours for 7 days; 14 tablet. Diclofenac Sodium 75 mg Oral Tablet, Delayed Release (E.C.) - take 1 tablet by ORAL route 2 times per day As needed; 30 tablet. - Work release form, Medication Reconciliation Form, Thank You Letter, Antibiotic Education, Prescription Opioid Use form. - Follow up: Emergency Department; When: As needed; Reason: Worsening of condition. Follow up: Private Physician; When: 2 - 3 days; Reason: Recheck today's complaints, Continuance of care, Re-evaluation by your physician. Addendum: 12/12/2017 15:23 Co-signature as Attending Physician, Issa Jo MD. g s Signatures: Dispatcher [employer] EDFL Cortney Shaw, ARCHITECTURAL DRAFTSMAN-Sona ARCHITECTURAL DRAFTSMAN-Neda Hooker RN RN aj Chretien, Felicia, RN RN fc Starr, Gregory, MD MD gs Lowrey, Tammy, RN RN tl3 Corrections: (The following items were deleted from the chart) 12/10 19:49 19:32 12/10/2017 19:32 Discharged to Home. Impression: Cellulitis of right lower limb. fc Condition is Stable. Forms are Medication Reconciliation Form, Thank You Letter, Antibiotic Education, Prescription Opioid Use. Follow up: Emergency Department; When: As needed; Reason: Worsening of condition. Follow up: Private Physician; When: 2 - 3 days; Reason: Recheck today's complaints, Continuance of care, Re-evaluation by your physician. kb
== END 2017-12-10 19:49 | disposition home or self-care (01) ==
LOC: ER 17:58
DX: L03.115 Cellulitis of right lower limb (principal)
CPT/HCPCS: 99284

== ENCOUNTER 2018-03-18 10:09 | Emergency (ER) | payer SELFPAY ==
--- OUTSIDE RECORDS SUMMARY | 2018-03-18 10:11 | XMS REPORT | Clinical Summary ---
:1990 Author Organization [facility] Address [address] [place] [address] Care Team Providers Name Role Phone Asked, No Pcp Primary Care Provider Unavailable Allergies No Known Allergies Medications Medication Sig Dispensed Refills Start Date End Date Status etodolac (LODINE) 500 Take 1 tablet 15 tablet 0 08/08/2017 08/18/2017 MG tablet (500 mg total) by mouth 2 (two) times a day as needed (pain) for up to 10 days. Active Problems Not on file Encounters Date Type Specialty Care Team Description 08/07/2017 - Emergency Emergency Medicine Homero Roa Bin, Flank pain ( Primary Dx); 08/08/2017 MD Tachycardia after 03/17/2017 Social History Tobacco Use Types Packs/Day Years Used Date Light Tobacco Smoker Cigarettes Smokeless Tobacco: Never Used Comments: rarely. Alcohol Use Drinks/Week oz/Week Comments No Sex Assigned at Date Recorded Not on file Job Start Date Occupation Industry Not on file Not on file Not on file Travel History Travel Start Travel End No recent travel history available. Last Filed Vital Signs Vital Sign Reading [...] procedure are in the results section. after 03/17/2017 Results Urine drugs of abuse screen (08/08/2017 12:35 AM CDT) Amphetamine screen, urine Negative [facility] DEPARTMENT OF PATHOLOGY AND GENOMIC MEDICINE Methamphetamine screen, Negative [facility] DEPARTMENT OF urine PATHOLOGY AND GENOMIC MEDICINE Barbiturate screen, urine Negative [facility] DEPARTMENT OF PATHOLOGY AND GENOMIC MEDICINE Benzodiazepine screen, urine Negative [facility] DEPARTMENT OF PATHOLOGY AND GENOMIC MEDICINE Cocaine screen, urine Negative [facility] DEPARTMENT OF PATHOLOGY AND GENOMIC MEDICINE Methadone screen, urine NT [facility] DEPARTMENT OF PATHOLOGY AND GENOMIC MEDICINE Opiates screen, urine Negative [facility] DEPARTMENT OF PATHOLOGY AND GENOMIC MEDICINE Phencyclidine screen, urine NT [facility] DEPARTMENT OF PATHOLOGY AND GENOMIC MEDICINE Cannabinoid screen, urine Negative [facility] DEPARTMENT OF PATHOLOGY AND GENOMIC MEDICINE Tricyclic screen, urine NT [facility] DEPARTMENT OF Comment: PATHOLOGY AND GENOMIC Drug screen minimum concentration of detectability MEDICINE Lwiditxradti5422 ng/mL Ullpznghnxiiwbzf8247 ng/mL Barbiturates 300 ng/mL Uptiahiweqzpzlx683 ng/mL Bucfsox416 ng/mL Bwcwnoycp134 ng/mL Metfzjn394 ng/mL Phencyclidine 25 ng/mL Axulntaknbfa46 ng/mL Bddushqwez1241 ng/mL Negative test results indicates presumptive evidence of lack of clinically significant drug concentration in this urine specimen. Positive test results are presumptive evidence of clinically significant drug concentration in this urine specimen. Testing performed for medical purposes only. Specimen Urine Performing Organization Address City/State/Zipcode Phone Number [facility] DEPARTMENT OF PATHOLOGY AND [address] [place] [address] GENOMIC MEDICINE Urinalysis screen and microscopy, with reflex to culture (08/08/2017 12:29 AM CDT) Specimen site Clean catch [facility] DEPARTMENT OF PATHOLOGY AND GENOMIC MEDICINE Color, UA Alyx [facility] DEPARTMENT OF PATHOLOGY AND GENOMIC MEDICINE Appearance, UA Cloudy [facility] DEPARTMENT OF PATHOLOGY AND GENOMIC MEDICINE Specific gravity, UA 1.040 (H) 1.001 - 1.035 [facility] DEPARTMENT OF PATHOLOGY AND GENOMIC MEDICINE pH, UA 5.0 5.0 - 8.5 [facility] DEPARTMENT OF PATHOLOGY AND GENOMIC MEDICINE Protein, UA 1+ (A) Negative [facility] DEPARTMENT OF PATHOLOGY AND GENOMIC MEDICINE Glucose, UA Negative Negative [facility] DEPARTMENT OF PATHOLOGY AND GENOMIC MEDICINE Ketones, UA Negative Negative [facility] DEPARTMENT OF PATHOLOGY AND GENOMIC MEDICINE Bilirubin, UA Negative Negative [facility] DEPARTMENT OF PATHOLOGY AND GENOMIC MEDICINE Blood, UA Negative Negative [facility] DEPARTMENT OF PATHOLOGY AND GENOMIC MEDICINE Nitrite, UA Negative Negative [facility] DEPARTMENT OF PATHOLOGY AND GENOMIC MEDICINE Urobilinogen, UA 2.0 (A) <2.0 [facility] DEPARTMENT OF PATHOLOGY AND GENOMIC MEDICINE Leukocyte esterase, UA Negative Negative [facility] DEPARTMENT OF PATHOLOGY AND GENOMIC MEDICINE WBC, UA 0-5 0 - 1 /HPF [facility] DEPARTMENT OF PATHOLOGY AND GENOMIC MEDICINE RBC, UA 6-10 (H) 0 - 5 /HPF [facility] DEPARTMENT OF PATHOLOGY AND GENOMIC MEDICINE Bacteria, UA None seen None seen [facility] DEPARTMENT OF PATHOLOGY AND GENOMIC MEDICINE Yeast, UA None seen [facility] DEPARTMENT OF PATHOLOGY AND GENOMIC MEDICINE Yeast with pseudohyphae, UA None seen [facility] DEPARTMENT OF PATHOLOGY AND GENOMIC MEDICINE Hyaline casts, UA 11-20 /LPF [facility] DEPARTMENT OF PATHOLOGY AND GENOMIC MEDICINE Specimen Urine Performing Organization Address [facility] Phone Number [facility] DEPARTMENT OF PATHOLOGY AND [address] [place] [address] [place], [place] [id number] [place] [address] MEDICINE Urine culture (08/08/2017 12:29 AM CDT) Urine culture SEE COMMENTComment: Bacteriuria [facility] DEPARTMENT OF PATHOLOGY screen negative. AND GENOMIC MEDICINE Specimen Urine Performing Organization Address [facility] Phone Number [facility] DEPARTMENT OF PATHOLOGY AND [address] [place] [address] [place], [place] [phone] [place] [address] Creatine kinase, total (CPK) (08/08/2017 12:26 AM CDT) Creatine kinase 296 39 - 308 U/L [facility] DEPARTMENT OF PATHOLOGY AND GENOMIC MEDICINE Specimen Plasma specimen Performing Organization Address [facility] Phone Number [facility] DEPARTMENT OF PATHOLOGY AND [address] [place] [address] [place], [place] [phone] [place] [address] CT Renal Stone Protocol (08/07/2017 10:29 PM CDT) Narrative Performed At [facility] CL[facility]ICAL INDICATION:L flank pain TECHNIQUE: Multidetector CT [...] acute pathology within the abdomen and pelvis. [facility]-[id number] Procedure Note Interface, Radiology Results Incoming - [...] acute pathology within the abdomen and pelvis. [facility]-[id number] Performing Organization Address [facility] Phone Number [facility] [address] [place] [address] XR Chest 1 Vw Portable (08/07/2017 10:01 PM CDT) Narrative Performed At EXAMINATION: XR CHEST 1 VW PORTABLE [facility] CLINICAL HISTORY: SOB COMPARISON:10/16/2011 chest x-ray. IMPRESSION: The lungs are clear. No pleural effusion or pneumothorax. The cardiomediastinal silhouette is normal. No acute osseous abnormalities. [facility]-[id number] Procedure Note Interface, Radiology Results Incoming - 08/07/2017 10:05 PM CDT EXAMINATION: XR CHEST 1 VW PORTABLE CLINICAL HISTORY: SOB COMPARISON: 10/16/2011 chest x-ray. IMPRESSION: The lungs are clear. No pleural effusion or pneumothorax. The cardiomediastinal silhouette is normal. No acute osseous abnormalities. [facility]-[id number] Performing Organization Address [facility] Phone Number [facility] [address] [place] [address] Estimated GFR (08/07/2017 9:40 PM CDT) GFR Non Af Amer 81 mL/min/1.73 m2 [facility] DEPARTMENT OF PATHOLOGY AND [facility] MEDICINE GFR Af Amer >90 mL/min/1.73 m2 [facility] DEPARTMENT OF Comment: PATHOLOGY AND [facility] Chronic kidney disease: <60 mL/min/1.73m2 MEDICINE Kidney [...] Americans. Specimen Plasma specimen Performing Organization Address [facility] Phone Number [facility] AND [address] [place] [address] [place] [address] [facility] Troponin (08/07/2017 9:40 PM CDT) Troponin <0.300 0.000 - 0.300 ng/mL [facility] DEPARTMENT OF Comment: PATHOLOGY AND GENOMIC 0.30 - 1.49 ng/mlMay indicate increased risk of acute MEDICINE coronary syndrome. >=1.5 ng/mlConsistent with acute myocardial infarction. The diagnostic value of a single normal or non-diagnostic result is questionable.Serial samples at 2-6 hour intervals are required to rule out acute myocardial injury. Specimen Plasma specimen Performing Organization Address [facility] Phone Number [facility] AND [address] [place] [address] [place] [address] [facility] Partial thromboplastin time, activated (08/07/2017 9:40 PM CDT) PTT 30.7 23.0 - 36.0 sec [facility] DEPARTMENT OF Comment: PATHOLOGY AND [facility] PTT therapeutic range for unfractionated heparin is MEDICINE 61.0-112.0 seconds which corresponds to Anti-Xa 0.3-0.7 U/ml. Specimen Blood Performing Organization Address [facility] Phone Number [facility] AND [address] [place] [address] [place] [address] [facility] Prothrombin time with INR (08/07/2017 9:40 PM CDT) Prothrombin time 13.7 12.0 - 15.0 sec [facility] DEPARTMENT OF PATHOLOGY AND GENOMIC MEDICINE INR 1.0 [facility] DEPARTMENT OF Comment: PATHOLOGY AND GENOMIC The International Normalized Ratio (INR) is a therapeutic MEDICINE monitoring tool for patients who are stable on oral anticoagulant therapy. An INR of 2.0-3.0 is suggested for deep vein thrombosis/pulmonary embolism. Specimen Blood Performing Organization Address City/State/Zipcode Phone Number [facility] DEPARTMENT OF PATHOLOGY AND [address] [place] [address] [facility] CBC with platelet and differential (08/07/2017 9:40 PM CDT) WBC 16.45 (H) 4.50 - 11.00 k/uL [facility] DEPARTMENT OF PATHOLOGY AND GENOMIC MEDICINE RBC 5.50 4.40 - 6.00 m/uL [facility] DEPARTMENT OF PATHOLOGY AND GENOMIC MEDICINE HGB 15.4 14.0 - 18.0 g/dL [facility] DEPARTMENT OF PATHOLOGY AND GENOMIC MEDICINE HCT 45.7 41.0 - 51.0 % [facility] DEPARTMENT OF PATHOLOGY AND GENOMIC MEDICINE MCV 83.1 82.0 - 100.0 fL [facility] DEPARTMENT OF PATHOLOGY AND GENOMIC MEDICINE MCH 28.0 27.0 - 34.0 pg [facility] DEPARTMENT OF PATHOLOGY AND GENOMIC MEDICINE MCHC 33.7 31.0 - 37.0 g/dL [facility] DEPARTMENT OF PATHOLOGY AND GENOMIC MEDICINE RDW - SD 39.9 37.0 - 55.0 fL [facility] DEPARTMENT OF PATHOLOGY AND GENOMIC MEDICINE MPV 10.0 8.8 - 13.2 fL [facility] DEPARTMENT OF PATHOLOGY AND GENOMIC MEDICINE Platelet count 395 150 - 400 k/uL [facility] DEPARTMENT OF PATHOLOGY AND GENOMIC MEDICINE Nucleated RBC 0.00 /100 WBC [facility] DEPARTMENT OF PATHOLOGY AND GENOMIC MEDICINE Neutrophils 70.6 (H) 39.0 - 69.0 % [facility] DEPARTMENT OF PATHOLOGY AND GENOMIC MEDICINE Lymphocytes 20.0 (L) 25.0 - 45.0 % [facility] DEPARTMENT OF PATHOLOGY AND GENOMIC MEDICINE Monocytes 8.1 0.0 - 10.0 % [facility] DEPARTMENT OF PATHOLOGY AND GENOMIC MEDICINE Eosinophils 0.1 0.0 - 5.0 % [facility] DEPARTMENT OF PATHOLOGY AND GENOMIC MEDICINE Basophils 0.7 0.0 - 1.0 % [facility] DEPARTMENT OF PATHOLOGY AND GENOMIC MEDICINE Specimen Blood Performing Organization Address City/[facility]/Zipcode Phone Number [facility] DEPARTMENT OF PATHOLOGY AND [address] [place] [address] [facility] Lipase level (08/07/2017 9:40 PM CDT) Lipase 35 13 - 60 U/L [facility] DEPARTMENT OF PATHOLOGY AND GENOMIC MEDICINE Specimen Plasma specimen Performing Organization Address City/[facility]/Zipcode Phone Number [facility] DEPARTMENT OF PATHOLOGY AND [address] [place] [address] [facility] Comprehensive metabolic panel (08/07/2017 9:40 PM CDT) Sodium 134 (L) 135 - 148 mEq/L [facility] DEPARTMENT OF PATHOLOGY AND GENOMIC MEDICINE Potassium 3.5 3.5 - 5.0 mEq/L [facility] DEPARTMENT OF PATHOLOGY AND GENOMIC MEDICINE Chloride 95 (L) 98 - 112 mEq/L [facility] DEPARTMENT OF PATHOLOGY AND GENOMIC MEDICINE CO2 21 (L) 24 - 31 mEq/L [facility] DEPARTMENT OF PATHOLOGY AND GENOMIC MEDICINE Anion gap 18@ANIO (H) 7 - 15 mEq/L [facility] DEPARTMENT OF PATHOLOGY AND GENOMIC MEDICINE BUN 18 6 - 20 mg/dL [facility] DEPARTMENT OF PATHOLOGY AND GENOMIC MEDICINE Creatinine 1.1 0.7 - 1.2 mg/dL [facility] DEPARTMENT OF PATHOLOGY AND GENOMIC MEDICINE Glucose 121 (H) 65 - 99 mg/dL [facility] DEPARTMENT OF PATHOLOGY AND GENOMIC MEDICINE Calcium 9.8 8.3 - 10.2 mg/dL [facility] DEPARTMENT OF PATHOLOGY AND GENOMIC MEDICINE Protein 8.5 (H) 6.3 - 8.3 g/dL [facility] DEPARTMENT OF Comment: PATHOLOGY AND GENOMIC 4.6-7.0 g/dL MEDICINE 1 week 4.4-7.6 g/dL 7 months-1year5.1-7.3 g/dL 1-2 years5.6-7.5 g/dL >3 years6.0-8.0 g/dL 18-150 6.3-8.3 g/dL Albumin 4.7 3.5 - 5.0 g/dL [facility] DEPARTMENT OF PATHOLOGY AND GENOMIC MEDICINE A/G ratio 1.2 0.7 - 3.8 [facility] DEPARTMENT OF PATHOLOGY AND GENOMIC MEDICINE Alkaline phosphatase 83 40 - 129 U/L [facility] DEPARTMENT OF PATHOLOGY AND GENOMIC MEDICINE AST 32 10 - 50 U/L [facility] DEPARTMENT OF PATHOLOGY AND GENOMIC MEDICINE ALT 45 5 - 50 U/L [facility] DEPARTMENT OF PATHOLOGY AND GENOMIC MEDICINE Total bilirubin 0.7 0.0 - 1.2 mg/dL [facility] DEPARTMENT OF PATHOLOGY AND GENOMIC MEDICINE Specimen Plasma specimen Performing Organization Address City/[facility] Phone Number [facility] DEPARTMENT OF PATHOLOGY AND [address] MEDICINE ECG 12 lead (08/07/2017 9:28 PM CDT) Ventricular rate 122 [facility] Atrial rate 122 [facility] AK interval 166 [facility] QRSD interval 78 [facility] QT interval 298 [facility] QTC interval 424 [facility] P axis 1 34 [facility] QRS axis 1 61 [facility] T wave axis -1 [facility] EKG impression Sinus tachycardia-Nonspecific T wave [facility] MUSE abnormality-Abnormal ECG-No previous ECGs available-Septal infarct- Performing Organization Address City/[facility] Phone Number [facility] MUSE [address] [place] [address] ECG ED Preliminary Interpretation - NOT AN ORDER (08/07/2017 9:15 PM CDT) Narrative Performed At [facility] 08/08/20177:32 AM ECG ED Preliminary Interpretation - Not an Order Performed by: YAKOV QUIÑONEZ Authorized by: HOMERO ROA ECG reviewed by ED Physician in the absence of a sql etl developer: yes Previous ECG: Previous ECG:Unavailable Interpretation: Interpretation: abnormal Rate: ECG rate:122 ECG rate assessment: tachycardic Rhythm: Rhythm: sinus rhythm Ectopy: Ectopy: none QRS: QRS axis:Normal Conduction: Conduction: normal ST segments: ST segments:Normal T waves: T waves: non-specific after 03/17/2017 Advance Directives Patient has advance care planning documents on file. For more information, please contact:[place] [address] [place] [id number]
--- OUTSIDE RECORDS SUMMARY | 2018-03-18 10:12 | XMS REPORT | Continuity of Care Document ---
:1990 Author Organization Interface Problems Problem Status Onset Classification Date Comments Source Date Reported Discharge 02/10/20 02/13/2016 [facility] Diagnosis: [facility] Discharge 02/10/20 02/13/2016 [facility] Diagnosis: 16 [facility] Diarrhea [facility] DIARRHEA/VOMITIN Active 02/10/20 [facility] G Medical Center Discharge 05/17/19 05/20/2015 [facility] Diagnosis: [address] [place] [address] Lumbar Center paraspinal muscle spasm LOWER BACK PAIN Active 05/17/19 [place] [address] [facility] BACK PAIN Active 09/30/19 [facility] 15 Degenerative Active Problem 02/13/2016 [facility] disc disease, 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, Stop date: 02/10/16 22:23:00 CSTNotes: (Same as: Zofran ODT) ibuprofen 800 mg 800 mg=1 tab, Active 05/17[facility] oral tablet PO, Q8H, PRN 2016 Medical Fever or Pain, Center Take with food, # 30 tab, 0 Refill(s) Diazepam 5 MG Oral 5 mg=1 tab, Active 05/17[facility] Tablet [Valium] PO, QID, PRN 2016 Medical Muscle Spasms, Center X 7 day, # 10 tab, 0 Refill(s) Diazepam 5 mg, Route: Inactive 05/17[facility] PO, ONCE, 2016 Medical Dosing Weight [place] 122.727, kg, Priority: STAT, Start date: 05/17/15 19:47:00, Stop date: 05/17/15 19:47:00 Ketorolac 60 mg, 2 mL, Inactive [place] Route: IM, 2015 Medical Drug form: Center [...] mg, 1 tab, Inactive Route: PO, 2014 [facility] Drug form: TAB, TID, Dosing Weight 124.1, kg, Start date: 10/01/14 17:00:00, Duration: 3 day, Stop date: 10/04/14 13:00:00Notes: (Same as :Medrol) Take with food MethylPREDNISolone See Active Dose Pack 4 mg Instructions, 2014 [facility] oral tablet PO, Daily, Use as directed on label., X 6 day, # 1 Pack, 0 Refill(s)Speci al Instructions: Use as directed on label. Flexeril 10 mg, 1 tab, No Longer Route: PO, Active 2014 [facility] Drug form: TAB, Q8H, PRN Muscle Spasms, Start date: 09/30/14 16:54:00, Duration: 30 day, Stop date: 10/30/14 16:53:00Notes: (Same As: Flexeril) predniSONE 10 mg 10 mg=1 tab, No Longer oral tablet PO, Daily, X Active 2014 [facility] 30 day, # 30 tab, 0 Refill(s) Cyclobenzaprine 10 mg=1 tab, Active hydrochloride 10 PO, TID, PRN 2014 [facility] MG Oral Tablet for spasm, # [Flexeril] 30 tab, 0 Refill(s) Acetaminophen 300 1 tab, PO, Active MG / Codeine Q6H, # 24 tab, 2014 [facility] Phosphate 30 MG 0 Refill(s) Oral Tablet [Tylenol with Codeine #3] Famotidine 20 MG 20 mg, 1 tab, No Longer Oral Tablet Route: PO, Active 2014 [facility] [Pepcid] Drug form: TAB, Q12H, Dosing Weight 124.1, kg, Start date: 09/29/14 21:00:00, Duration: 30 day, Stop date: 10/29/14 9:00:00Notes: (Same as: Pepcid) Dilaudid 1 mg, 0.5 mL, No Longer Route: IV, Active 2014 [facility] Drug form: INJ, Q3H, Dosing Weight 124.1, kg, PRN Pain Score 7-10, Start date: 09/29/14 17:10:00, Duration: 30 day, Stop date: 10/29/14 17:09:00Notes: (Same as: Dilaudid) Saline Flush 0.9% 10 ml, Route: No Longer IVP, Drug Active 2014 [facility] Form: INJ, Dosing Weight 124.1, kg, Q12H, Start date: 09/29/14 9:00:00, Duration: 30 day, Stop date: 10/28/14 21:00:00Notes: (Same as: BD Posiflush) dexamethasone 4 mg, 1 tab, No Longer Route: PO, Active 2014 [facility] Drug form: TAB, Q6Hnow, Start date: 09/29/14 8:00:00, Duration: 30 day, Stop date: 10/29/14 2:00:00Notes: Give with food. (Same As: Decadron) Enoxaparin 40 mg, 0.4 mL, No Longer Route: SUB-Q, Active 2014 [facility] Drug form: INJ, [id number], Dosing Weight 124.1, kg, Start date: 09/29/14 3:00:00, Duration: 30 day, Stop date: 10/28/14 3:00:00Notes: (Same as: Lovenox) Saline Flush 0.9% 10 ml, Route: No Longer IVP, Drug Active 2014 [facility] Form: INJ, Dosing Weight 124.1, kg, PRN, PRN Line Flush, Start date: 09/29/14 2:45:00, Duration: 30 day, Stop date: 10/29/14 2:44:00Notes: (Same as: BD Posiflush) Dexamethasone 4 mg, 1 tab, Inactive Route: PO, 2014 [facility] Drug form: TAB, Q6Hnow, Dosing Weight 124.1, kg, Priority: STAT, Start date: 09/29/14 2:45:00, Duration: 30 day, Stop date: 10/28/14 20:45:00Notes: Give with food. (Same As: Decadron) gabapentin 300 mg, 1 cap, No Longer Route: PO, Active 2014 [facility] Drug form: CAP, [id number], Dosing Weight 124.1, kg, Priority: STAT, Start date: 09/29/14 2:32:00, Duration: 30 day, Stop date: 10/28/14 14:32:00Notes: (Same as: Neurontin) Ondansetron 4 mg, 2 mL, No Longer Route: IVP, Active 2014 [facility] Drug form: INJ, Q4H, Dosing Weight 124.1, kg, PRN Nausea & Vomiting, Start date: 09/29/14 2:32:00, Duration: 30 day, Stop date: 10/29/14 2:31:00Notes: (Same as: Zofran) MEDICATION WASTE Product Size: 4 mg Product Wasted: ___ mg Morphine 3 mg, 0.75 mL, Inactive Route: IVP, 2014 [facility] Drug form: INJ, Q3H, Dosing Weight 124.1, kg, PRN Pain Score 4-6, Start date: 09/29/14 2:32:00, Duration: 30 day, Stop date: 10/29/14 2:31:00Notes: (Same as:MORPhine Sulfate) Acetaminophen 650 mg, 2 tab, No Longer Route: PO, Active 2014 [facility] Drug form: TAB, Q4H, Dosing Weight [...] Lvl 135 unit/L 73 - 393 02/09 [facility] CHEM PANEL A/G Ratio 1.0 0.7 - 1.6 02/09 2015 [facility] CHEM PANEL Globulin 4.2 g/dL 2.7 - 4.2 02/09 [facility] CHEM PANEL AGAP 17.7 meq/L 10.0 - 02/09 [facility] 20.0 [facility] CHEM PANEL B/C Ratio 16 6 - 25 02/09 2015 [facility] CHEM PANEL Albumin Lvl 4.3 g/dL 3.5 - 5.0 02/09 [facility] CHEM PANEL ALT 24 unit/L 0 - 65 02/09 2015 [facility] CHEM PANEL Total 8.5 g/dL 6.4 - 8.4 02/09 [facility] CHEM PANEL Bili Total 0.8 mg/dL 0.2 - 1.3 02/[address] CHEM PANEL Alk Phos 97 unit/L 39 - 136 02/09 [facility] CHEM PANEL AST 21 unit/L 0 - 37 02/09 2015 [facility] CHEM PANEL eGFR 121 02/09 Result Comment: The eGFR is calculated using the CKD-EPI formula. In most young, healthy individuals the eGFR will be >90 mL/ min/1.73m2. The eGFR declines with age. An eGFR of 60-89 may be normal in [facility] mL/min/1. some populations, particularly the elderly, for whom the CKD-EPI formula has not been extensively validated. Use of the eGFR is not recommended in the following populations: [address] Individuals with unstable creatinine concentrations, including [...] Potassium 3.7 meq/L 3.5 - 5.1 02/09 [facility] CHEM PANEL BUN 14 mg/dL 7 - 22 02/09 [facility] CHEM PANEL Sodium Lvl 135 meq/L 135 - 145 02/09 [facility] CHEM PANEL Glucose Lvl 104 mg/dL 70 - 99 02/09 [facility] CHEM PANEL Creatinine 0.87 mg/dL 0.50 - 02/09 [facility] Lvl 1.40 [facility] CHEM PANEL CO2 21 meq/L 24 - 32 02/09 [facility] CHEM PANEL Calcium Lvl 8.9 mg/dL 8.5 - 10.5 02/09 [facility] CHEM PANEL Chloride Lvl 100 meq/L 95 - 109 02/09 [facility] HEMATOLOGY Basophils # 0.1 K/CMM 0.0 - 0.2 02/09 [facility] HEMATOLOGY Monocytes # 1.5 K/CMM 0.0 - 0.8 02/09 [facility] HEMATOLOGY Lymphocytes 3.1 K/CMM 1.0 - 5.5 02/09 [facility] HEMATOLOGY Segs-Bands # 12.2 K/CMM 1.5 - 8.1 02/09 [facility] HEMATOLOGY Basophils 0.3 % 0.0 - 1.0 02/09 [facility] HEMATOLOGY Monocytes 8.6 % 2.0 - 12.0 02/09 [facility] HEMATOLOGY Eosinophils 0.3 K/CMM 0.0 - 0.5 02/09 [facility] HEMATOLOGY Lymphocytes 17.9 % 20.0 - 02/09 40.0 [facility] HEMATOLOGY Segs 71.3 % 45.0 - 02/09 [place] 75.0 [facility] HEMATOLOGY Eosinophils 1.9 % 0.0 - 4.0 02/09 [facility] HEMATOLOGY MPV 8.4 fL 7.4 - 10.4 02/09 [facility] HEMATOLOGY Hgb 16.6 g/dL 14.0 - 02/09 18.0 [facility] HEMATOLOGY RBC 5.62 M/CMM 4.70 - 02/09 [place] 6.10 [facility] HEMATOLOGY WBC 17.0 K/CMM 3.7 - 10.4 02/09 [facility] HEMATOLOGY MCH 29.6 pg 27.0 - 02/09 [facility] 31.0 /2015 [facility] HEMATOLOGY MCV 85.0 fL 80.0 - 02/09 [facility] 94.0 /2015 [facility] HEMATOLOGY Hct 47.7 % 42.0 - 02/09 [facility] 54.0 /2015 [facility] HEMATOLOGY Platelet 375 K/CMM 133 - 450 02/09 [facility] HEMATOLOGY MCHC 34.8 g/dL 32.0 - 02/09 [facility] 36.0 /2015 [facility] HEMATOLOGY RDW 13.8 % 11.5 - 02/09 [facility] 14. /2015 [facility] ELECTROLYT AGAP 12.4 meq/L 10.0 - 09/30 [facility] 20.0 [facility] ELECTROLYT eGFR 120 09/30 Result Comment: The eGFR is calculated using the CKD-EPI formula. In most young, healthy individuals the eGFR will be >90 mL/ min/1.73m2. The eGFR declines with age. An eGFR of 60-89 may be normal in [facility] mL/min/1. some populations, particularly the elderly, for whom the CKD-EPI formula has not been extensively validated. Use of the eGFR is not recommended in the following populations: [facility] 3m2 Individuals with unstable creatinine concentrations, [...] Lvl 9.0 mg/dL 8.5 - 10.5 09/30 [facility] ELECTROLYT CO2 26 meq/L 24 - 32 09/30 [facility] ELECTROLYT Chloride Lvl 103 meq/L 95 - 109 09/30 ES [facility] ELECTROLYT Creatinine 0.9 mg/dL 0.5 - 1.4 09/30 [facility] Lvl [facility] ELECTROLYT Potassium 4.4 meq/L 3.5 - 5.1 09/30 ES Lvl [facility] ELECTROLYT Sodium Lvl 137 meq/L 135 - 145 09/30 [facility] ELECTROLYT BUN 9 mg/dL 7 - 09/30 [facility] ELECTROLYT Glucose Lvl 184 mg/dL 70 - 99 09/30 [facility] ES /2014 [facility] Hct 43.9 % 42.0 - 09/30 [facility] 54.0 /2014 [facility] Hgb 14.6 g/dL 14.0 - 09/30 [facility] 18.0 [facility] RBC 4.89 M/CMM 4.70 - 09/30 [facility] 6.10 /2014 [facility] MPV 9.3 fL 7.4 - 10.4 09/30 [facility] Platelet 315 K/CMM 133 - 450 09/30 [facility] RDW 13.5 % 11.5 - 09/30 14.5 /2014 [facility] MCHC 33.3 g/dL 32.0 - 09/30 36.0 /2014 [facility] MCV 89.8 fL 80.0 - 09/30 94.0 [facility] MCH 29.9 pg 27.0 - 09/30 31.0 [facility] WBC 22.8 K/CMM 3.7 - 10.4 09/30 [facility] Spine Spine lumbar EXAMINATION: MRI lumbar spine with and without contrast contrast 09/29 - lumbar w/wo /2014 - [facility] w/ contrast MRI contrast MRI HISTORY: [...] UA 4.0 mg/dL 0.1 - 1.0 09/29 [facility] Urobilinogen /2014 [facility] URINE AND UA Blood Negative Negative 09/29 STOOL [facility] (09/29/14 3:50 AM) URINE AND UA Nitrite Negative Negative 09/29 STOOL [facility] (09/29/14 3:50 AM) URINE AND UA Bili Negative Negative 09/29 [facility] *NA* (09/29/14 3:50 AM) URINE AND UA Leuk Est Negative Negative 09/29 STOOL [facility] (09/29/14 3:50 AM) URINE AND UA WBC 1 /HPF 0 - 5 09/29 [facility] URINE AND UA Mucus Many /LPF None Seen 09/29 [facility] /LPF /2014 [facility] URINE AND UA RBC 2 /HPF 0 - 2 09/29 [facility] URINE AND UA Sq Epi None Seen 09/29 [facility] URINE AND UA Spec Grav 1.029 <=1.030 09/29 [facility] URINE AND UA Protein Negative Negative 09/29 [facility] mg/dL mg/dL [facility] URINE AND UA pH 6.0 5.0 - 8.0 09/29 [facility] URINE AND UA Glucose Negative Negative 09/29 [facility] mg/dL mg/dL [facility] URINE AND UA Ketones Negative Negative 09/29 [facility] mg/dL mg/dL [facility] URINE AND UA Turbidity Clear Clear 09/29 [facility] (09/29/14 3:50 AM) URINE AND UA Color Yellow Yellow 09/29 [facility] *NA* (09/29/14 3:50 AM) CHEM PANEL [...] is not recommended in the following populations: [address] Individuals with unstable creatinine concentrations, including [...] Ratio 1.1 0.7 - 1.6 09/29 /2014 [facility] CHEM PANEL B/C Ratio 15 6 - 25 09/29 /2014 [facility] CHEM PANEL Globulin 3.7 g/dL 2.0 - 4.0 09/29 /2014 [facility] CHEM PANEL AGAP 12.1 meq/L 10.0 - 09/29 [facility] 20.0 /2014 [facility] HEMATOLOGY Hgb 14.8 g/dL 14.0 - 09/29 [facility] 18.0 /2014 [facility] HEMATOLOGY RBC 4.98 M/CMM 4.70 - 09/29 MH 6.10 /2014 [facility] HEMATOLOGY MCV 88.1 fL 80.0 - 09/29 [facility] 94.0 /2014 [facility] HEMATOLOGY MCH 29.7 pg 27.0 - 09/29 [facility] 31.0 /2014 [facility] HEMATOLOGY WBC 13.5 K/CMM 3.7 - 10.4 09/29 [facility] HEMATOLOGY Hct 43.9 % 42.0 - 09/29 [facility] 54.0 /2014 [facility] HEMATOLOGY RDW 13.6 % 11.5 - 09/29 MH 14.5 [facility] HEMATOLOGY MCHC 33.7 g/dL 32.0 - 09/29 [facility] 36.0 /2014 [facility] HEMATOLOGY MPV 9.1 fL 7.4 - 10.4 09/29 /2014 [facility] HEMATOLOGY Platelet 310 K/CMM 133 - 450 09/29 /2014 [facility] HEMATOLOGY Basophils # 0.0 K/CMM 0.0 - 0.2 09/29 [facility] HEMATOLOGY Eosinophils 0.0 K/CMM 0.0 - 0.5 09/29 [facility] # /2014 [facility] HEMATOLOGY Lymphocytes 0.9 K/CMM 1.0 - 5.5 09/29 [facility] # /2014 [facility] HEMATOLOGY Monocytes # 0.1 K/CMM 0.0 - 0.8 09/29 [facility] HEMATOLOGY Basophils 0.2 % 0.0 - 1.0 09/29 [facility] HEMATOLOGY Segs-Bands # 12.4 K/CMM 1.5 - 8.1 09/29 [facility] HEMATOLOGY Segs 91.8 % 45.0 - 09/29 [facility] 75.0 /2014 [facility] HEMATOLOGY Plt Morph Normal 09/29 [facility] (09/29/14 3:19 AM) HEMATOLOGY Monocytes 0.9 % 2.0 - 12.0 09/29 [facility] HEMATOLOGY Lymphocytes 7.0 % 20.0 - 09/29 [facility] 40.0 /2015 [facility] HEMATOLOGY Eosinophils 0.1 % 0.0 - 4.0 09/29 [facility] HEMATOLOGY RBC Morph Normal 09/29 [facility] (09/29/14 3:19 AM) HEMATOLOGY PTT 34.5 s 22.9 - 09/29 35.8 /2014 [facility] Vital Signs Vital Sign Value Date Comments Source Systolic (mm Hg) 142 02/11/2016 [facility] Diastolic (mm Hg) 102 02/11/2016 [facility] Temperature Oral (F) 98.1 F 02/11/2016 [facility] Respitory Rate 18 02/11/2016 [facility] Heart Rate 100 02/11/2016 [facility] Weight 104.545 02/10/2016 [facility] BMI Calculated 32.15 02/10/2016 [facility] Temperature Oral (F) 98.2 F 02/10/2016 [facility] Height 180.34 cm 02/10/2016 [facility] Heart Rate 98 02/10/2016 [facility] Systolic (mm Hg) 136 02/10/2016 [facility] Diastolic (mm Hg) 95 02/10/2016 [facility] Respitory Rate 18 02/10/2016 [facility] Systolic (mm Hg) 138 05/18/2015 [facility] Diastolic (mm Hg) 85 05/18/2015 [facility] Heart Rate 108 05/18/2015 [facility] Respitory Rate 18 05/18/2015 [facility] Temperature Oral (F) 98.4 F 05/18/2015 [facility] Weight 122.727 05/17/2015 [facility] Systolic (mm Hg) 143 05/17/2015 [facility] Diastolic (mm Hg) 98 05/17/2015 [facility] Heart Rate 116 05/17/2015 [facility] Respitory Rate 20 05/17/2015 [facility] Temperature Oral (F) 98.3 F 05/17/2015 [facility] Systolic (mm Hg) 126 10/01/2014 [facility] Diastolic (mm Hg) 79 10/01/2014 [facility] Respitory Rate 18 10/01/2014 [facility] Temperature Oral (F) 97.8 F 10/01/2014 [facility] Heart Rate 86 10/01/2014 [facility] Temperature Oral (F) 97.7 F 10/01/2014 [facility] Systolic (mm Hg) 124 10/01/2014 [facility] Diastolic (mm Hg) 70 10/01/2014 [facility] Respitory Rate 18 10/01/2014 [facility] Heart Rate 90 10/01/2014 [facility] Heart Rate 63 10/01/2014 [facility] Respitory Rate 18 10/01/2014 [facility] Systolic (mm Hg) 122 10/01/2014 [facility] Diastolic (mm Hg) 77 10/01/2014 [facility] Temperature Oral (F) 97.7 F 10/01/2014 [facility] Height 177.8 cm 09/29/2014 [facility] BMI Calculated 39.26 09/29/2014 [facility] Weight 124.1 09/29/2014 [facility] Encounters Location Location Encounter Encounter Reason Attending ADM DC Status Source Details Type Number For Provider Date Date Visit [facility] OBS [id number] Brandon 09/29 10/01 [facility] /2014 [facility] Patient t [facility] Emergency [id number] Kimo 05/16 05/17 [facility] Tone /2015 [facility] Emergency [id number] Tucker Rajput 02/09 02/10 [facility] William /2015 [facility] Procedures Procedure Code Date Perfomer Comments Source
--- OUTSIDE RECORDS SUMMARY | 2018-03-18 10:13 | XMS REPORT ---
:1990 Author Organization [facility] Address [address] [place] [address] [place] [id number] Care Team Providers Name Role Phone Unavailable Unavailable Unavailable Problems This patient has no known problems. Allergies, Adverse Reactions, Alerts This patient has no known allergies or adverse reactions. Medications This patient has no known medications. Encounters Start End Encounter Admission Attending Care Care Encounter Date/Time Date/Time Type Type Clinicians Facility Department ID 2017-07-29 2017-07-29 Outpatient [facility] [id number] 00:00:00 00:00:00 2017-07-25 2017-07-25 Outpatient [facility] [id number] 10:44:59 10:44:59 2017-07-13 2017-07-13 Outpatient [facility] [id number] 10:11:58 10:11:58 2017-06-28 2017-06-28 Outpatient [facility] [id number] 08:22:27 08:22:27 2017-06-23 2017-06-23 Outpatient [facility] [id number] 08:21:10 08:21:10 2017-06-21 2017-06-21 Outpatient [facility] [id number] 10:07:45 10:07:45
--- NOTE | 2018-03-18 10:20 | EDPHYS ---
Physician Documentation [facility] Name: Jatinder Romero Age: 28 yrs Sex: Male : 1990 Arrival Date: 03/18/2018 Time: 10:12 Bed 17 Private MD: None, None ED Physician Francisco J Darden HPI: 03/18 10:21 This 28 yrs old Male presents to ER via Unassigned with complaints of Ear Pain.kb 10:21 The patient presents with pain, muffled hearing. The complaints affect the right ear. kb Onset: The symptoms/episode began/occurred yesterday. Modifying factors: The symptoms are alleviated by nothing, the symptoms are aggravated by nothing. Associated signs and symptoms: The patient has no apparent associated signs or symptoms. Severity of symptoms: At their worst the symptoms were moderate in the emergency department the symptoms are unchanged. The patient has not experienced similar symptoms in the past. The patient has not recently seen a physician. Pt reports right ear pain that started yesterday, woke up with muffled hearing to right ear this morning. Historical: - Allergies: 10:28 No Known Allergies; la1 - Home Meds: 10:28 None [Active]; la1 - PMHx: 10:28 None; la1 - PSHx: 10:28 Cholecystectomy; la1 - Immunization history:: Adult Immunizations up to date. - Social history:: Smoking status: Patient/guardian denies using tobacco. ROS: 10:24 Constitutional: Negative for fever, chills, and weight loss, Cardiovascular: Negative kb for chest pain, palpitations, and edema, Respiratory: Negative for shortness of breath, cough, wheezing, and pleuritic chest pain, Abdomen/GI: Negative for abdominal pain, nausea, vomiting, diarrhea, and constipation, MS/Extremity: Negative for injury and deformity, Skin: Negative for injury, rash, and discoloration, Neuro: Negative for headache, weakness, numbness, tingling, and seizure. 10:24 ENT: Positive for ear pain. Exam: 10:25 Constitutional: This is a well developed, well nourished patient who is awake, alert, kb and in no acute distress. Head/Face: Normocephalic, atraumatic. Chest/axilla: Normal chest wall appearance and motion. Nontender with no deformity. No lesions are appreciated. Cardiovascular: Regular rate and rhythm with a normal S1 and S2. No gallops, murmurs, or rubs. Normal PMI, no JVD. No pulse deficits. Respiratory: Lungs have equal breath sounds bilaterally, clear to auscultation and percussion. No rales, rhonchi or wheezes noted. No increased work of breathing, no retractions or nasal flaring. Abdomen/GI: Soft, non-tender, with normal bowel sounds. No distension or tympany. No guarding or rebound. No evidence of tenderness throughout. Skin: Warm, dry with normal turgor. Normal color with no rashes, no lesions, and no evidence of cellulitis. MS/ Extremity: Pulses equal, no cyanosis. Neurovascular intact. Full, normal range of motion. Neuro: Awake and alert, GCS 15, oriented to person, place, time, and situation. Cranial nerves II-XII grossly intact. Motor strength 5/5 in all extremities. Sensory grossly intact. Cerebellar exam normal. Normal gait. 10:25 ENT: External ear(s): are unremarkable, Ear canal(s): are normal, TM's: bulging, on the right, erythema, that is moderate, on the right. Vital Signs: 10:27 BP 142 / 100; Pulse 81; Resp 16; Temp 97.5; Pulse Ox 98% on R/A; la1 MDM: 10:15 Patient medically screened. kb 10:23 Data reviewed: vital signs, nurses notes. Data interpreted: Pulse oximetry: on room air kb is 98 %. Interpretation: normal. Counseling: I had a detailed discussion with the patient and/or guardian regarding: the historical points, exam findings, and any diagnostic results supporting the discharge/admit diagnosis, the need for outpatient follow up, a family practitioner, to return to the emergency department if symptoms worsen or persist or if there are any questions or concerns that arise at home. Administered Medications: No medications were administered Disposition: 18:49 Co-signature as Attending Physician, Francisco J Darden MD Available for consultation at ps1 all times. Disposition: 03/18/18 10:20 Discharged to Home. Impression: Otitis media, unspecified, right ear. - Condition is Stable. - Discharge Instructions: Otitis Media, Adult, Lmuw-is-Bruu. - Prescriptions for Amoxicillin 875 mg Oral Tablet - take 1 tablet by ORAL route every 12 hours for 10 days; 20 tablet. - Medication Reconciliation Form, Thank You Letter, Antibiotic Education, Prescription Opioid Use form. - Follow up: Emergency Department; When: As needed; Reason: Worsening of condition. Follow up: Private Physician; When: 2 - 3 days; Reason: Recheck today's complaints, Continuance of care, Re-evaluation by your physician. Signatures: Cortney Shaw FNP-C FNP-Aleksandr Castro RN RN la1 Francisco J Darden MD MD ps1 Corrections: (The following items were deleted from the chart) 10:28 10:20 03/18/2018 10:20 Discharged to Home. Impression: Otitis media, unspecified, right la1 ear. Condition is Stable. Forms are Medication Reconciliation Form, Thank You Letter, Antibiotic Education, Prescription Opioid Use. Follow up: Emergency Department; When: As needed; Reason: Worsening of condition. Follow up: Private Physician; When: 2 - 3 days; Reason: Recheck today's complaints, Continuance of care, Re-evaluation by your physician. kb
--- NOTE | 2018-03-18 10:29 | ER ---
Nurse's Notes [facility] Name: Jatinder Romero Age: 28 yrs Sex: Male : 1990 Arrival Date: 03/18/2018 Time: 10:12 Bed 17 Private MD: None, None Diagnosis: Otitis media, unspecified, right ear Presentation: 03/18 10:27 Presenting complaint: Patient states: right ear pain x 1 day. Transition of care: la1 patient was not received from another setting of care. Onset of symptoms was March 18, 2018. Risk Assessment: Do you want to hurt yourself or someone else? Patient reports no desire to harm self or others. Initial Sepsis Screen: Does the patient meet any 2 criteria? No. Patient's initial sepsis screen is negative. Does the patient have a suspected source of infection? No. Patient's initial sepsis screen is negative. Care prior to arrival: None. 10:27 Method Of Arrival: Ambulatory la1 10:27 Acuity: ADRIA 5 la1 Triage Assessment: 10:28 General: Appears. la1 Historical: - Allergies: 10:28 No Known Allergies; la1 - Home Meds: 10:28 None [Active]; la1 - PMHx: 10:28 None; la1 - PSHx: 10:28 Cholecystectomy; la1 - Immunization history:: Adult Immunizations up to date. - Social history:: Smoking status: Patient/guardian denies using tobacco. Screenin:28 Abuse screen: Denies threats or abuse. Nutritional screening: No deficits noted. la1 Tuberculosis screening: No symptoms or risk factors identified. Fall Risk None identified. Assessment: 10:27 Reassessment: Patient is alert, oriented x 3, equal unlabored respirations, skin la1 warm/dry/pink. Pain: Complains of pain in right ear. EENT: Ear canal clear on left ear and right ear. Vital Signs: 10:27 BP 142 / 100; Pulse 81; Resp 16; Temp 97.5; Pulse Ox 98% on R/A; la1 ED Course: 10:12 Patient arrived in ED. mr 10:12 None, None is Private Physician. mr 10:14 Cortney Shaw [facility]C [facility]. kb 10:14 Francisco J Darden MD is Attending Physician. kb 10:17 Contreras Reza, RN is Primary Nurse. bp 10:27 Triage completed. la1 10: Arm band placed on left wrist. la1 10:28 Call light in reach. la1 10: No provider procedures requiring assistance completed. Patient did not have IV access la1 during this emergency room visit. Administered Medications: No medications were administered Outcome: 10:20 Discharge ordered by . kb 10:28 Discharged to home ambulatory. la1 10:28 Condition: stable 10:28 Discharge instructions given to patient, Instructed on discharge instructions, follow up and referral plans. medication usage, Demonstrated understanding of instructions, follow-up care, medications, Prescriptions given X 1. 10:28 Patient left the ED. la1 Signatures: Cortney Shaw, YAIMA SHRESTHA-Digna Frye Lee, RN RN la1 Contreras Reza, RN RN bp
== END 2018-03-18 10:28 | disposition home or self-care (01) ==
LOC: ER 10:09
DX: H66.91 Otitis media, unspecified, right ear (principal)
CPT/HCPCS: 99282

== ENCOUNTER 2018-07-08 20:51 | Emergency (ER) | payer SELFPAY ==
--- OUTSIDE RECORDS SUMMARY | 2018-07-08 20:54 | XMS REPORT | Clinical Summary ---
:1990 Author Organization [facility] Address [address] [place] [address] Care Team Providers Name Role Phone Asked, [...] ( Primary Dx); 08/08/2017 MD Tachycardia after 07/07/2017 Social History Tobacco Use Types Packs/Day Years [...] Due Date Last Done Comments INFLUENZA VACCINE 09/14/2018 Procedures Procedure Name Priority Date/Time Associated Comments [...] procedure are in the results section. after 07/07/2017 Results Urine drugs of abuse screen (08/08/2017 12:35 AM CDT) Amphetamine screen, Negative [facility] DE[facility] urine OF PATHOLOGY AND GENOMIC MEDICINE Methamphetamine Negative [facility], urine OF PATHOLOGY AND GENOMIC MEDICINE Barbiturate screen, Negative [facility] DE[facility] urine OF PATHOLOGY AND GENOMIC MEDICINE Benzodiazepine screen, Negative [facility] DEPART[facility] urine OF PATHOLOGY AND GENOMIC MEDICINE Cocaine screen, urine Negative [facility] DEPART[facility] OF PATHOLOGY AND GENOMIC MEDICINE Methadone screen, NT [facility] DEPART[facility] urine OF PATHOLOGY AND GENOMIC MEDICINE Opiates screen, urine Negative [facility] DEPART[facility] OF PATHOLOGY AND GENOMIC MEDICINE Phencyclidine screen, NT [facility] urine OF PATHOLOGY AND [facility] Cannabinoid screen, Negative [facility] urine OF PATHOLOGY AND [facility] Tricyclic screen, NT [facility] DE[facility] urine Comment: OF PATHOLOGY AND Drug screen minimum concentration of detectability GENOMIC MEDICINE Llmtqpunxzzp6115 ng/mL Xghoaracoohzhnpg0549 ng/mL Barbiturates 300 ng/mL Brbdxrganoevtcu057 ng/mL Pfyfbsg437 ng/mL Fvhzzryxa513 ng/mL Zcpaszm148 ng/mL Phencyclidine 25 ng/mL Qzrmjjajrtgb75 ng/mL Gbmmovlzxt8141 ng/mL Negative test results indicates presumptive evidence of lack of clinically significant drug concentration in this urine specimen. Positive test results are presumptive evidence of clinically significant drug concentration in this urine specimen. Testing performed for medical purposes only. Specimen Urine Performing Organization Address City/State/Zipcode Phone Number [facility] DEPARTMENT OF PATHOLOGY AND [address] [place] [address] [facility] Urinalysis screen and microscopy, with reflex to culture (08/08/2017 12:29 AM CDT) Specimen site Clean catch [facility] DEPARTMENT OF PATHOLOGY AND GENOMIC MEDICINE Color, UA Alyx [facility] DEPART[facility] OF PATHOLOGY AND GENOMIC MEDICINE Appearance, UA Cloudy [facility] DEPARTMENT OF PATHOLOGY AND GENOMIC MEDICINE Specific gravity, 1.040 (H) 1.001 - 1.[address] [facility] PATHOLOGY AND GENOMIC MEDICINE pH, UA 5.0 5.0 - 8.5 [facility] DEPART[facility] OF PATHOLOGY AND GENOMIC MEDICINE Protein, UA 1+ (A) Negative [facility] DEPART[facility] OF PATHOLOGY AND GENOMIC MEDICINE Glucose, UA Negative Negative [facility] DEPART[facility] OF PATHOLOGY AND GENOMIC MEDICINE Ketones, UA Negative Negative [facility] DEPART[facility] OF PATHOLOGY AND GENOMIC MEDICINE Bilirubin, UA Negative Negative [facility] DEPART[facility] OF PATHOLOGY AND GENOMIC MEDICINE Blood, UA Negative Negative [facility] DEPART[facility] OF PATHOLOGY AND GENOMIC MEDICINE Nitrite, UA Negative Negative [facility] DEPARTMENT OF PATHOLOGY AND GENOMIC MEDICINE Urobilinogen, UA 2.0 (A) <2.0 [facility] DEPART[facility] OF PATHOLOGY AND GENOMIC MEDICINE Leukocyte esterase, Negative Negative [facility]PART[facility] PATHOLOGY AND GENOMIC MEDICINE WBC, UA 0-5 0 - 1 /HPF [facility] DEPARTMENT OF PATHOLOGY AND GENOMIC MEDICINE RBC, UA 6-10 (H) 0 - 5 /HPF [facility] DE[facility] OF PATHOLOGY AND GENOMIC MEDICINE Bacteria, UA None seen None seen [facility] DEPARTMENT OF PATHOLOGY AND GENOMIC MEDICINE Yeast, UA None seen [facility] DEPARTMENT OF PATHOLOGY AND GENOMIC MEDICINE Yeast with None seen [facility] DEPARTMENT OF pseudohyphae, PATHOLOGY AND GENOMIC MEDICINE Hyaline casts, UA 11-20 /LPF [facility] DEPART[facility] OF PATHOLOGY AND GENOMIC MEDICINE Specimen Urine Performing Organization Address [facility] Phone Number [facility] DEPART[facility] OF PATHOLOGY AND [id number] [place] [address] [place] [address] [facility] Urine culture (08/08/2017 12:29 AM CDT) Urine culture SEE COMMENTComment: [facility] DEPARTMENT OF Bacteriuria screen PATHOLOGY AND negative. GENOMIC MEDICINE Specimen Urine Performing Organization Address [facility] Phone Number [facility] DEPARTMENT OF PATHOLOGY AND [id number] [place] [address] [place] [address] [facility] Creatine kinase, total (CPK) (08/08/2017 12:26 AM CDT) Creatine kinase 296 39 - 308 U/L [facility] DEPARTMENT OF PATHOLOGY AND GENOMIC MEDICINE Specimen Plasma specimen Performing Organization Address [facility] Phone Number [facility] DEPARTMENT OF PATHOLOGY AND [address] [place] [address] [place] [address] [facility] CT Renal Stone Protocol (08/07/2017 10:29 PM CDT) Specimen Narrative Performed At CT RENAL STONE PROTOCOL [...] acute pathology within the abdomen and pelvis. [facility]-[id number] Procedure Note Interface, Radiology Results Incoming - [...] acute pathology within the abdomen and pelvis. [facility]-[id number] Performing Organization Address City/[facility] Phone Number [facility] [address] [place] [address] XR Chest 1 Vw Portable (08/07/2017 10:01 PM CDT) Specimen Narrative Performed At EXAMINATION: XR CHEST 1 VW PORTABLE [facility] CLINICAL HISTORY: SOB COMPARISON:10/16/2011 chest x-ray. IMPRESSION: The lungs are clear. No pleural effusion or pneumothorax. The cardiomediastinal silhouette is normal. No acute osseous abnormalities. [facility]-[id number] Procedure Note [facility], Radiology Results Incoming - 08/07/2017 10:05 PM CDT EXAMINATION: XR CHEST 1 VW PORTABLE CLINICAL HISTORY: SOB COMPARISON: 10/16/2011 chest x-ray. IMPRESSION: The lungs are clear. No pleural effusion or pneumothorax. The cardiomediastinal silhouette is normal. No acute osseous abnormalities. [facility]-[id number] Performing Organization Address [facility] Phone Number [facility] [address] [place] [address] Estimated GFR (08/07/2017 9:40 PM CDT) [facility] GFR Non Af Amer 81 mL/min/1.73 [facility] m2 OF PATHOLOGY AND GENOMIC MEDICINE GFR Af Amer >90 mL/min/1.73 [facility] Comment: m2 OF PATHOLOGY AND Chronic kidney disease: <60 mL/min/1.73m2 GENOMIC MEDICINE Kidney failure: <15 mL/min/1.73m2 The estimated [...] and Americans. Specimen Plasma specimen Performing Organization [facility] Phone Number [facility] AND [id number] [place] [address] [place] [address] [facility] Troponin (08/07/2017 9:40 PM CDT) [facility] Troponin <0.300 0.000 - 0.300 [facility] DEPART[facility] OF Comment: ng/mL PATHOLOGY AND 0.30 - 1.49 ng/mlMay indicate increased risk of acute GENOMIC MEDICINE coronary syndrome. >=1.5 ng/mlConsistent with acute myocardial infarction. The diagnostic value of a single normal or non-diagnostic result is questionable.Serial samples at 2-6 hour intervals are required to rule out acute myocardial injury. Specimen Plasma specimen Performing Organization Address [facility] Phone Number [facility] AND [address] [place] [address] [place] [address] [facility] Partial thromboplastin time, activated (08/07/2017 9:40 PM CDT) [facility] PTT 30.7 23.0 - 36.0 [facility] DEPART[facility] OF Comment: sec PATHOLOGY AND PTT therapeutic range for unfractionated heparin is GENOMIC MEDICINE 61.0-112.0 seconds which corresponds to Anti-Xa 0.3-0.7 U/ml. Specimen Blood Performing Organization Address [facility] Phone Number [facility] PATHOLOGY AND [address] [place] [address] [facility] Prothrombin time with INR (08/07/2017 9:40 PM CDT) [facility] Prothrombin time 13.7 12.0 - 15.0 [facility] sec OF PATHOLOGY AND GENOMIC MEDICINE INR 1.0 [facility] Comment: OF PATHOLOGY AND The International Normalized Ratio (INR) is a therapeutic GENOMIC MEDICINE monitoring tool for patients who are stable on oral anticoagulant therapy. An INR of 2.0-3.0 is suggested for deep vein thrombosis/pulmonary embolism. Specimen Blood Performing Organization Address City/State/Zipcode Phone Number [facility] PATHOLOGY AND [address] [place] [address] [facility] CBC with platelet and differential (08/07/2017 9:40 PM CDT) Pathologist [facility] WBC 16.45 (H) 4.50 - 11.00 k/uL [facility] DEPARTMENT OF PATHOLOGY AND GENOMIC MEDICINE RBC 5.50 4.40 - 6.00 m/uL [facility] DEPARTMENT OF PATHOLOGY AND GENOMIC MEDICINE HGB 15.4 14.0 - 18.0 g/dL [facility] DEPART[facility] OF PATHOLOGY AND GENOMIC MEDICINE HCT 45.7 41.0 - 51.0 % [facility] DEPART[facility] OF PATHOLOGY AND GENOMIC MEDICINE MCV 83.1 82.0 - 100.0 fL [facility] DEPART[facility] OF PATHOLOGY AND GENOMIC MEDICINE MCH 28.0 27.0 - 34.0 pg [facility] DEPARTMENT OF PATHOLOGY AND GENOMIC MEDICINE MCHC 33.7 31.0 - 37.0 g/dL [facility] DEPARTMENT OF PATHOLOGY AND GENOMIC MEDICINE RDW - SD 39.9 37.0 - 55.0 fL [facility] DEPARTMENT OF PATHOLOGY AND GENOMIC MEDICINE MPV 10.0 8.8 - 13.2 fL [facility] DEPARTMENT OF PATHOLOGY AND GENOMIC MEDICINE Platelet count 395 150 - 400 k/uL [facility] DEPARTMENT OF PATHOLOGY AND GENOMIC MEDICINE Nucleated RBC 0.00 /100 WBC [facility] DEPARTMENT OF PATHOLOGY AND GENOMIC MEDICINE Neutrophils 70.6 (H) 39.0 - 69.0 % [facility] DEPARTMENT OF PATHOLOGY AND GENOMIC MEDICINE Lymphocytes 20.0 (L) 25.0 - 45.0 % [facility] DEPART[facility] OF PATHOLOGY AND GENOMIC MEDICINE Monocytes 8.1 0.0 - 10.0 % [facility] DEPARTMENT OF PATHOLOGY AND GENOMIC MEDICINE Eosinophils 0.1 0.0 - 5.0 % [facility] DEPARTMENT OF PATHOLOGY AND GENOMIC MEDICINE Basophils 0.7 0.0 - 1.0 % [facility] DEPARTMENT OF PATHOLOGY AND GENOMIC MEDICINE Specimen Blood Performing Organization Address City/[facility]/Zipcode Phone Number [facility] DEPARTMENT OF PATHOLOGY AND [address] [place] [address] [facility] Lipase level (08/07/2017 9:40 PM CDT) Lipase 35 13 - 60 U/L [facility] DEPARTMENT OF PATHOLOGY AND GENOMIC MEDICINE Specimen Plasma specimen Performing Organization Address City/[facility] Phone Number [facility] DEPART[facility] OF PATHOLOGY AND [address] [place] [address] [facility] Comprehensive metabolic panel (08/07/2017 9:40 PM CDT) Sodium 134 (L) 135 - 148 [facility] mEq/L OF PATHOLOGY AND GENOMIC MEDICINE Potassium 3.5 3.5 - 5.0 [facility] mEq/L OF PATHOLOGY AND GENOMIC MEDICINE Chloride 95 (L) 98 - 112 mEq/L [facility] DE[facility] OF PATHOLOGY AND GENOMIC MEDICINE CO2 21 (L) 24 - 31 mEq/L [facility] DEPART[facility] OF PATHOLOGY AND GENOMIC MEDICINE Anion gap 18@ANIO (H) 7 - 15 mEq/L [facility] DE[facility] OF PATHOLOGY AND GENOMIC MEDICINE BUN 18 6 - 20 mg/dL [facility] DE[facility] OF PATHOLOGY AND GENOMIC MEDICINE Creatinine 1.1 0.7 - 1.2 [facility] mg/dL OF PATHOLOGY AND GENOMIC MEDICINE Glucose 121 (H) 65 - 99 mg/dL [facility] DE[facility] OF PATHOLOGY AND GENOMIC MEDICINE Calcium 9.8 8.3 - 10.2 [facility] mg/dL OF PATHOLOGY AND GENOMIC MEDICINE Protein 8.5 (H) 6.3 - 8.3 g/dL [facility] Comment: OF PATHOLOGY AND [place] 4.6-7.0 g/dL [facility] 1 week 4.4-7.6 g/dL 7 months-1year5.1-7.3 g/dL 1-2 years5.6-7.5 g/dL >3 years6.0-8.0 g/dL 18-150 6.3-8.3 g/dL Albumin 4.7 3.5 - 5.0 g/dL [facility] DEPART[facility] OF PATHOLOGY AND GENOMIC MEDICINE A/G ratio 1.2 0.7 - 3.8 [facility] DEPART[facility] OF PATHOLOGY AND GENOMIC MEDICINE Alkaline phosphatase 83 40 - 129 U/L [facility] DEPARTMENT OF PATHOLOGY AND GENOMIC MEDICINE AST 32 10 - 50 U/L [facility] DEPART[facility] OF PATHOLOGY AND GENOMIC MEDICINE ALT 45 5 - 50 U/L [facility] DEPARTMENT OF PATHOLOGY AND GENOMIC MEDICINE Total bilirubin 0.7 0.0 - 1.2 [facility] mg/dL OF PATHOLOGY AND GENOMIC MEDICINE Specimen Plasma specimen Performing Organization Address City/State/Zipcode Phone Number [facility] DEPARTMENT OF PATHOLOGY AND [id number] [place] [address] MEDICINE ECG 12 lead (08/07/2017 9:28 PM CDT) Ventricular rate 122 [facility] Atrial rate [address] interval 166 [facility] QRSD interval 78 [facility] QT interval 298 [facility] QTC interval 424 [facility] P axis 1 34 [facility] QRS axis 1 61 [facility] T wave axis -1 [facility] EKG impression Sinus [facility] MUSE tachycardia-Nonspecific T wave abnormality-Abnormal ECG-No previous ECGs available-Septal infarct- Specimen Performing Organization Address City/[facility] Phone Number [facility] [address] [place] [address] ECG ED Preliminary Interpretation - NOT AN ORDER (08/07/2017 9:15 PM CDT) Narrative Performed At [facility] 08/08/20177:32 AM ECG ED Preliminary Interpretation - Not an Order Performed by: YAKOV QUIÑONEZ Authorized by: HOMERO ROA ECG reviewed by ED Physician in the absence of a supervisor elementary education: yes Previous ECG: Previous ECG:Unavailable Interpretation: Interpretation: abnormal Rate: ECG rate:122 ECG rate assessment: tachycardic Rhythm: Rhythm: sinus rhythm Ectopy: Ectopy: none QRS: QRS axis:Normal Conduction: Conduction: normal ST segments: ST segments:Normal T waves: T waves: non-specific after 07/07/2017 Advance Directives Patient has advance care planning documents on file. For more information, please contact:[facility] [place] [phone]
--- OUTSIDE RECORDS SUMMARY | 2018-07-08 20:56 | XMS REPORT | Continuity of Care Document ---
:1990 Author Organization Interface Problems Problem Status Onset Classification Date Comments Source Date Reported Discharge 02/10/20 02/13/2016 [facility] Diagnosis: [facility] Discharge 02/10/20 02/13/2016 [facility] Diagnosis: 16 [facility] Diarrhea [facility] DIARRHEA/VOMITIN Active 02/10/20 [facility] G [facility] Discharge 05/17/19 05/20/2015 [facility] Diagnosis: [address] [place] [address] Lumbar Center paraspinal muscle spasm LOWER BACK PAIN Active 05/17/19 [place] [address] Medical Center BACK PAIN Active 09/30/19 [facility] 15 Degenerative Active Problem 02/13/2016 [facility] disc disease, [facility] lumbar Center Medications Medication Details Route Status Patient Ordering Order Source Instructions Provider Date Ondansetron 4 MG 4 mg=1 tab, Active [facility] Disintegrating PO, BID, PRN 2016 Medical Tablet [Zofran] Nausea and Center Vomiting, Dissolve tab under tongue, X 5 day, # 10 tab, 0 Refill(s) Zofran ODT 4 mg, 1 tab, Inactive [facility] Route: PO, 2016 Medical Drug form: Center TABDIS, ONCE, Dosing Weight 104.545, kg, Priority: STAT, Start date: 02/10/16 22:23:00 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, Stop date: 02/10/16 22:23:00 CSTNotes: (Same as: Zofran ODT) ibuprofen 800 mg 800 mg=1 tab, Active 05/17[facility] oral tablet PO, Q8H, PRN 2016 Medical Fever or Pain, Center Take with food, # 30 tab, 0 Refill(s) Diazepam 5 MG Oral 5 mg=1 tab, Active 05/17[facility] Tablet [Valium] PO, QID, PRN 2016 Medical Muscle Spasms, Center X 7 day, # 10 tab, 0 Refill(s) Diazepam 5 mg, Route: Inactive 05/17[facility] PO, ONCE, 2016 Medical Dosing Weight Lily Dale 122.727, kg, Priority: STAT, Start date: 05/17/15 19:47:00, Stop date: 05/17/15 19:47:00 Ketorolac 60 mg, 2 mL, Inactive [place] Route: IM, 2015 Medical Drug form: Center [...] mg, 1 tab, Inactive Route: PO, 2014 [facility] Drug form: TAB, TID, Dosing Weight 124.1, kg, Start date: 10/01/14 17:00:00, Duration: 3 day, Stop date: 10/04/14 13:00:00Notes: (Same as :Medrol) Take with food MethylPREDNISolone See Active Dose Pack 4 mg Instructions, 2014 [facility] oral tablet PO, Daily, Use as directed on label., X 6 day, # 1 Pack, 0 Refill(s)Speci al Instructions: Use as directed on label. Flexeril 10 mg, 1 tab, No Longer Route: PO, Active 2014 [facility] Drug form: TAB, Q8H, PRN Muscle Spasms, Start date: 09/30/14 16:54:00, Duration: 30 day, Stop date: 10/30/14 16:53:00Notes: (Same As: Flexeril) predniSONE 10 mg 10 mg=1 tab, No Longer oral tablet PO, Daily, X Active 2014 [facility] 30 day, # 30 tab, 0 Refill(s) Cyclobenzaprine 10 mg=1 tab, Active hydrochloride 10 PO, TID, PRN 2014 [facility] MG Oral Tablet for spasm, # [Flexeril] 30 tab, 0 Refill(s) Acetaminophen 300 1 tab, PO, Active MG / Codeine Q6H, # 24 tab, 2014 [facility] Phosphate 30 MG 0 Refill(s) Oral Tablet [Tylenol with Codeine #3] Famotidine 20 MG 20 mg, 1 tab, No Longer Oral Tablet Route: PO, Active 2014 [facility] [Pepcid] Drug form: TAB, Q12H, Dosing Weight 124.1, kg, Start date: 09/29/14 21:00:00, Duration: 30 day, Stop date: 10/29/14 9:00:00Notes: (Same as: Pepcid) Dilaudid 1 mg, 0.5 mL, No Longer Route: IV, Active 2014 [facility] Drug form: INJ, Q3H, Dosing Weight 124.1, kg, PRN Pain Score 7-10, Start date: 09/29/14 17:10:00, Duration: 30 day, Stop date: 10/29/14 17:09:00Notes: (Same as: Dilaudid) Saline Flush 0.9% 10 ml, Route: No Longer IVP, Drug Active 2014 [facility] Form: INJ, Dosing Weight 124.1, kg, Q12H, Start date: 09/29/14 9:00:00, Duration: 30 day, Stop date: 10/28/14 21:00:00Notes: (Same as: BD Posiflush) dexamethasone 4 mg, 1 tab, No Longer Route: PO, Active 2014 [facility] Drug form: TAB, Q6Hnow, Start date: 09/29/14 8:00:00, Duration: 30 day, Stop date: 10/29/14 2:00:00Notes: Give with food. (Same As: Decadron) Enoxaparin 40 mg, 0.4 mL, No Longer Route: SUB-Q, Active 2014 [facility] Drug form: INJ, [id number], Dosing Weight 124.1, kg, Start date: 09/29/14 3:00:00, Duration: 30 day, Stop date: 10/28/14 3:00:00Notes: (Same as: Lovenox) Saline Flush 0.9% 10 ml, Route: No Longer IVP, Drug Active 2014 [facility] Form: INJ, Dosing Weight 124.1, kg, PRN, PRN Line Flush, Start date: 09/29/14 2:45:00, Duration: 30 day, Stop date: 10/29/14 2:44:00Notes: (Same as: BD Posiflush) Dexamethasone 4 mg, 1 tab, Inactive Route: PO, 2014 [facility] Drug form: TAB, Q6Hnow, Dosing Weight 124.1, kg, Priority: STAT, Start date: 09/29/14 2:45:00, Duration: 30 day, Stop date: 10/28/14 20:45:00Notes: Give with food. (Same As: Decadron) gabapentin 300 mg, 1 cap, No Longer Route: PO, Active 2014 [facility] Drug form: CAP, [id number], Dosing Weight 124.1, kg, Priority: STAT, Start date: 09/29/14 2:32:00, Duration: 30 day, Stop date: 10/28/14 14:32:00Notes: (Same as: Neurontin) Ondansetron 4 mg, 2 mL, No Longer Route: IVP, Active 2014 [facility] Drug form: INJ, Q4H, Dosing Weight 124.1, kg, PRN Nausea & Vomiting, Start date: 09/29/14 2:32:00, Duration: 30 day, Stop date: 10/29/14 2:31:00Notes: (Same as: Zofran) MEDICATION WASTE Product Size: 4 mg Product Wasted: ___ mg Morphine 3 mg, 0.75 mL, Inactive Route: IVP, 2014 [facility] Drug form: INJ, Q3H, Dosing Weight 124.1, kg, PRN Pain Score 4-6, Start date: 09/29/14 2:32:00, Duration: 30 day, Stop date: 10/29/14 2:31:00Notes: (Same as:MORPhine Sulfate) Acetaminophen 650 mg, 2 tab, No Longer Route: PO, Active 2014 [facility] Drug form: TAB, Q4H, Dosing Weight [...] Lvl 135 unit/L 73 - 393 02/09 [facility] CHEM PANEL A/G Ratio 1.0 0.7 - 1.6 02/09 2015 [facility] CHEM PANEL Globulin 4.2 g/dL 2.7 - 4.2 02/09 [facility] CHEM PANEL AGAP 17.7 meq/L 10.0 - 02/09 [facility] 20.0 [facility] CHEM PANEL B/C Ratio 16 6 - 25 02/09 2015 [facility] CHEM PANEL Albumin Lvl 4.3 g/dL 3.5 - 5.0 02/09 [facility] CHEM PANEL ALT 24 unit/L 0 - 65 02/09 2015 [facility] CHEM PANEL Total 8.5 g/dL 6.4 - 8.4 02/09 [facility] CHEM PANEL Bili Total 0.8 mg/dL 0.2 - 1.3 02/[address] CHEM PANEL Alk Phos 97 unit/L 39 - 136 02/09 [facility] CHEM PANEL AST 21 unit/L 0 - 37 02/09 2015 [facility] CHEM PANEL eGFR 121 02/09 Result Comment: The eGFR is calculated using the CKD-EPI formula. In most young, healthy individuals the eGFR will be >90 mL/ min/1.73m2. The eGFR declines with age. An eGFR of 60-89 may be normal in [facility] mL/min/1. some populations, particularly the elderly, for whom the CKD-EPI formula has not been extensively validated. Use of the eGFR is not recommended in the following populations: [address] Individuals with unstable creatinine concentrations, including [...] meq/L 3.5 - 5.1 02/09 [facility] CHEM PANEL BUN 14 mg/dL 7 - 22 02/09 [facility] CHEM PANEL Sodium Lvl 135 meq/L 135 - 145 02/09 [facility] CHEM PANEL Glucose Lvl 104 mg/dL 70 - 99 02/09 [facility] CHEM PANEL Creatinine 0.87 mg/dL 0.50 - 02/09 [facility] Lvl 1.40 [facility] CHEM PANEL CO2 21 meq/L 24 - 32 02/09 [facility] CHEM PANEL Calcium Lvl 8.9 mg/dL 8.5 - 10.5 02/09 [facility] CHEM PANEL Chloride Lvl 100 meq/L 95 - 109 02/09 [facility] HEMATOLOGY Basophils # 0.1 K/CMM 0.0 - 0.2 02/09 [facility] HEMATOLOGY Monocytes # 1.5 K/CMM 0.0 - 0.8 02/09 [facility] HEMATOLOGY Lymphocytes 3.1 K/CMM 1.0 - 5.5 02/09 [facility] HEMATOLOGY Segs-Bands # 12.2 K/CMM 1.5 - 8.1 02/09 [facility] HEMATOLOGY Basophils 0.3 % 0.0 - 1.0 02/09 [facility] HEMATOLOGY Monocytes 8.6 % 2.0 - 12.0 02/09 [facility] HEMATOLOGY Eosinophils 0.3 K/CMM 0.0 - 0.5 02/09 [facility] HEMATOLOGY Lymphocytes 17.9 % 20.0 - 02/09 40.0 [facility] HEMATOLOGY Segs 71.3 % 45.0 - 02/09 [place] 75.0 [facility] HEMATOLOGY Eosinophils 1.9 % 0.0 - 4.0 02/09 [facility] HEMATOLOGY MPV 8.4 fL 7.4 - 10.4 02/09 [facility] HEMATOLOGY Hgb 16.6 g/dL 14.0 - 02/09 18.0 [facility] HEMATOLOGY RBC 5.62 M/CMM 4.70 - 02/09 [place] 6.10 [facility] HEMATOLOGY WBC 17.0 K/CMM 3.7 - 10.4 02/09 [facility] HEMATOLOGY MCH 29.6 pg 27.0 - 02/09 [facility] 31.0 /2015 [facility] HEMATOLOGY MCV 85.0 fL 80.0 - 02/09 [facility] 94.0 /2015 [facility] HEMATOLOGY Hct 47.7 % 42.0 - 02/09 [facility] 54.0 /2015 [facility] HEMATOLOGY Platelet 375 K/CMM 133 - 450 02/09 [facility] HEMATOLOGY MCHC 34.8 g/dL 32.0 - 02/09 [facility] 36.0 /2015 [facility] HEMATOLOGY RDW 13.8 % 11.5 - 02/09 [facility] 14. /2015 [facility] ELECTROLYT AGAP 12.4 meq/L 10.0 - 09/30 [facility] 20.0 [facility] ELECTROLYT eGFR 120 09/30 Result Comment: The eGFR is calculated using the CKD-EPI formula. In most young, healthy individuals the eGFR will be >90 mL/ min/1.73m2. The eGFR declines with age. An eGFR of 60-89 may be normal in [facility] mL/min/1. some populations, particularly the elderly, for whom the CKD-EPI formula has not been extensively validated. Use of the eGFR is not recommended in the following populations: [facility] 3m2 Individuals with unstable creatinine concentrations, [...] Lvl 9.0 mg/dL 8.5 - 10.5 09/30 [facility] ELECTROLYT CO2 26 meq/L 24 - 32 09/30 [facility] ELECTROLYT Chloride Lvl 103 meq/L 95 - 109 09/30 ES [facility] ELECTROLYT Creatinine 0.9 mg/dL 0.5 - 1.4 09/30 [facility] Lvl [facility] ELECTROLYT Potassium 4.4 meq/L 3.5 - 5.1 09/30 ES Lvl [facility] ELECTROLYT Sodium Lvl 137 meq/L 135 - 145 09/30 [facility] ELECTROLYT BUN 9 mg/dL 7 - 09/30 [facility] ELECTROLYT Glucose Lvl 184 mg/dL 70 - 99 09/30 [facility] ES /2014 [facility] Hct 43.9 % 42.0 - 09/30 [facility] 54.0 /2014 [facility] Hgb 14.6 g/dL 14.0 - 09/30 [facility] 18.0 [facility] RBC 4.89 M/CMM 4.70 - 09/30 [facility] 6.10 /2014 [facility] MPV 9.3 fL 7.4 - 10.4 09/30 [facility] Platelet 315 K/CMM 133 - 450 09/30 [facility] RDW 13.5 % 11.5 - 09/30 14.5 /2014 [facility] MCHC 33.3 g/dL 32.0 - 09/30 36.0 /2014 [facility] MCV 89.8 fL 80.0 - 09/30 94.0 [facility] MCH 29.9 pg 27.0 - 09/30 31.0 [facility] WBC 22.8 K/CMM 3.7 - 10.4 09/30 [facility] Spine Spine lumbar EXAMINATION: MRI lumbar spine with and without contrast contrast 09/29 - lumbar w/wo /2014 - [facility] w/ contrast MRI contrast MRI HISTORY: [...] UA 4.0 mg/dL 0.1 - 1.0 09/29 [facility] Urobilinogen /2014 [facility] URINE AND UA Blood Negative Negative 09/29 [facility] (09/29/14 3:50 AM) URINE AND UA Nitrite Negative Negative 09/29 [facility] (09/29/14 3:50 AM) URINE AND UA Bili Negative Negative 09/29 [facility] *NA* (09/29/14 3:50 AM) URINE AND UA Leuk Est Negative Negative 09/29 [facility] (09/29/14 3:50 AM) URINE AND UA WBC 1 /HPF 0 - 5 09/29 [facility] URINE AND UA Mucus Many /LPF None Seen 09/29 [facility] /LPF /2014 [facility] URINE AND UA RBC 2 /HPF 0 - 2 09/29 [facility] URINE AND UA Sq Epi None Seen 09/29 [facility] URINE AND UA Spec Grav 1.029 <=1.030 09/29 [facility] URINE AND UA Protein Negative Negative 09/29 [facility] mg/dL mg/dL [facility] URINE AND UA pH 6.0 5.0 - 8.0 09/29 [facility] URINE AND UA Glucose Negative Negative 09/29 [facility] mg/dL mg/dL [facility] URINE AND UA Ketones Negative Negative 09/29 [facility] mg/dL mg/dL [facility] URINE AND UA Turbidity Clear Clear 09/29 [facility] (09/29/14 3:50 AM) URINE AND UA Color Yellow Yellow 09/29 [facility] *NA* (09/29/14 3:50 AM) CHEM PANEL [...] is not recommended in the following populations: [address] Individuals with unstable creatinine concentrations, including [...] Ratio 1.1 0.7 - 1.6 09/29 /2014 [facility] CHEM PANEL B/C Ratio 15 6 - 25 09/29 /2014 [facility] CHEM PANEL Globulin 3.7 g/dL 2.0 - 4.0 09/29 /2014 [facility] CHEM PANEL AGAP 12.1 meq/L 10.0 - 09/29 [facility] 20.0 /2014 [facility] HEMATOLOGY Hgb 14.8 g/dL 14.0 - 09/29 [facility] 18.0 /2014 [facility] HEMATOLOGY RBC 4.98 M/CMM 4.70 - 09/29 [facility] 6.10 /2014 [facility] HEMATOLOGY MCV 88.1 fL 80.0 - 09/29 [facility] 94.0 /2014 [facility] HEMATOLOGY MCH 29.7 pg 27.0 - 09/29 [facility] 31.0 /2014 [facility] HEMATOLOGY WBC 13.5 K/CMM 3.7 - 10.4 09/29 [facility] HEMATOLOGY Hct 43.9 % 42.0 - 09/29 [facility] 54.0 /2014 [facility] HEMATOLOGY RDW 13.6 % 11.5 - 09/29 [facility] 14.5 [facility] HEMATOLOGY MCHC 33.7 g/dL 32.0 - 09/29 [facility] 36.0 /2014 [facility] HEMATOLOGY MPV 9.1 fL 7.4 - 10.4 09/29 /2014 [facility] HEMATOLOGY Platelet 310 K/CMM 133 - 450 09/29 /2014 [facility] HEMATOLOGY Basophils # 0.0 K/CMM 0.0 - 0.2 09/29 [facility] HEMATOLOGY Eosinophils 0.0 K/CMM 0.0 - 0.5 09/29 [facility] # /2014 [facility] HEMATOLOGY Lymphocytes 0.9 K/CMM 1.0 - 5.5 09/29 [facility] # /2014 [facility] HEMATOLOGY Monocytes # 0.1 K/CMM 0.0 - 0.8 09/29 [facility] HEMATOLOGY Basophils 0.2 % 0.0 - 1.0 09/29 [facility] HEMATOLOGY Segs-Bands # 12.4 K/CMM 1.5 - 8.1 09/29 [facility] HEMATOLOGY Segs 91.8 % 45.0 - 09/29 [facility] 75.0 /2014 [facility] HEMATOLOGY Plt Morph Normal 09/29 [facility] (09/29/14 3:19 AM) HEMATOLOGY Monocytes 0.9 % 2.0 - 12.0 09/29 [facility] HEMATOLOGY Lymphocytes 7.0 % 20.0 - 09/29 [facility] 40.0 /2015 [facility] HEMATOLOGY Eosinophils 0.1 % 0.0 - 4.0 09/29 [facility] HEMATOLOGY RBC Morph Normal 09/29 [facility] (09/29/14 3:19 AM) HEMATOLOGY PTT 34.5 s 22.9 - 09/29 35.8 /2014 [facility] Vital Signs Vital Sign Value Date Comments Source Systolic (mm Hg) 142 02/11/[address] [facility] Diastolic (mm Hg) 102 02/11/[address] [facility] Temperature Oral (F) 98.1 F 02/11/[address] [facility] Respitory Rate 18 02/11/[address] [facility] Heart Rate 100 02/11/[address] [facility] Weight 104.545 02/10/[address] [facility] BMI Calculated 32.15 02/10/[address] [facility] Temperature Oral (F) 98.2 F 02/10/[address] [facility] Height 180.34 cm 02/10/[address] [facility] Heart Rate 98 02/10/[address] [facility] Systolic (mm Hg) 136 02/10/[address] [facility] Diastolic (mm Hg) 95 02/10/[address] [facility] Respitory Rate 18 02/10/[address] [facility] Systolic (mm Hg) 138 05/18/[address] [facility] Diastolic (mm Hg) 85 05/18/[address] [facility] Heart Rate 108 05/18/[address] [facility] Respitory Rate 18 05/18/[address] [facility] Temperature Oral (F) 98.4 F 05/18/[address] [facility] Weight 122.727 05/17/[address] [facility] Systolic (mm Hg) 143 05/17/[address] [facility] Diastolic (mm Hg) 98 05/17/[address] [facility] Heart Rate 116 05/17/[address] [facility] Respitory Rate 20 05/17/[address] [facility] Temperature Oral (F) 98.3 F 05/17/[address] [facility] Systolic (mm Hg) 126 10/01/2014 [facility] Diastolic (mm Hg) 79 10/01/2014 [facility] Respitory Rate 18 10/01/2014 [facility] Temperature Oral (F) 97.8 F 10/01/2014 [facility] Heart Rate 86 10/01/2014 [facility] Temperature Oral (F) 97.7 F 10/01/2014 [facility] Systolic (mm Hg) 124 10/01/2014 [facility] Diastolic (mm Hg) 70 10/01/2014 [facility] Respitory Rate 18 10/01/2014 [facility] Heart Rate 90 10/01/2014 [facility] Heart Rate 63 10/01/2014 [facility] Respitory Rate 18 10/01/2014 [facility] Systolic (mm Hg) 122 10/01/2014 [facility] Diastolic (mm Hg) 77 10/01/2014 [facility] Temperature Oral (F) 97.7 F 10/01/2014 [facility] Height 177.8 cm 09/29/2014 [facility] BMI Calculated 39.26 09/29/2014 [facility] Weight 124.1 09/29/2014 [facility] Encounters Location Location Encounter Encounter Reason Attending ADM DC Status Source Details Type Number For Provider Date Date Visit [facility] OBS [id number] Brandon 09/29 10/01 [facility]2014 [facility] Patient t [facility] [id number] Kimo 05/16 05/17 [facility] Tone /2015 [facility] Emergency [id number] Tucker Rajput 02/09 02/10 [facility] William /2015 [facility] Procedures Procedure Code Date Perfomer Comments Source
--- OUTSIDE RECORDS SUMMARY | 2018-07-08 20:56 | XMS REPORT ---
:1990 [facility] [address] [address] Care Team Providers Name Role Phone Unavailable Unavailable Unavailable Problems This patient has no known problems. Allergies, Adverse Reactions, Alerts This patient has no known allergies or adverse reactions. Medications This patient has no known medications. Encounters Start End Encounter Admission Attending Care Care Encounter Date/Time Date/Time Type Type Clinicians Facility Department ID 2017-07-29 2017-07-29 Outpatient [facility] [id number] 00:00:00 00:00:00 2017-07-25 2017-07-25 Outpatient [facility] [id number] 10:44:59 10:44:59 2017-07-13 2017-07-13 Outpatient [facility] [id number] 10:11:58 10:11:58 2017-06-28 2017-06-28 Outpatient [facility] [id number] 08:22:27 08:22:27 2017-06-23 2017-06-23 Outpatient [facility] [id number] 08:21:10 08:21:10 2017-06-21 2017-06-21 Outpatient [facility] [id number] 10:07:45 10:07:45
[2018-07-08] MEDS ORDERED: KETOROLAC 30 MG/ML INJ ONE (21:51)
[2018-07-08] MEDS ORDERED: NA CHLORIDE 0.9% 1,000 ML ONE ×2 (21:51→23:17)
[2018-07-08 21:54] LABS: Absolute Lymphocytes (CBC) 1.7 K/uL (0.7-4.9); Absolute Neutrophil 16.9 K/uL (1.8-8.0); Basophils % 0.3 % (0-1.3); Bilirubin Direct 0.2 mg/dL (0-0.2); Bilirubin Total 1.1 mg/dL (0.2-1.0); Hematocrit 50.4 % (39.6-49.0); Lymphocytes % 8.8 % (15.3-44.8); MPV 9.3 fL (7.6-11.3); Monocytes % 5.3 % (3.3-12.3); Potassium 3.7 mmol/L (3.5-5.1); Protein, Total 9.5 g/dL (6.4-8.2); RBC Red Blood Cell Count 5.93 M/uL (4.33-5.43)
[2018-07-08 22:05] LABS: Blood Morphology Comment NOT SEEN (NOT SEEN); Platelet Estimate INCR; Urine White Blood Cell Casts OK
[2018-07-08] MEDS ORDERED: TAMSULOSIN 0.4 MG SR CAP ONE (22:21)
[2018-07-08 22:39] LABS: Absolute Lymphocytes (CBC) 1.4 K/uL (0.7-4.9); Absolute Monocytes 0.8 K/uL (0.1-1.3); Absolute Neutrophil 13.9 K/uL (1.8-8.0); Basophils % 0.3 % (0-1.3); Hematocrit 49.3 % (39.6-49.0); Lymphocytes % 8.4 % (15.3-44.8); Monocytes % 5.2 % (3.3-12.3); RBC Red Blood Cell Count 5.83 M/uL (4.33-5.43)
[2018-07-08] MEDS ORDERED: FENTANYL CITR 100 MCG/2 ML ONE (22:50)
[2018-07-08 23:03] LABS: Potassium 3.5 mmol/L (3.5-5.1)
[2018-07-08] MEDS ORDERED: CIPROFLOXACIN 400mg IV 400 MG/200 ML BAG IV ONE (23:17)
[2018-07-09 00:25] LABS: Barbiturates NEGATIVE (NEGATIVE); Benzodiazepines NEGATIVE (NEGATIVE); Cocaine NEGATIVE (NEGATIVE); METHAMPHETAM NEGATIVE (NEGATIVE); Methadone NEGATIVE (NEGATIVE); Opiates NEGATIVE (NEGATIVE); Phencyclidine NEGATIVE (NEGATIVE); THC Cannibis POSITIVE (NEGATIVE)
--- NOTE | 2018-07-09 01:58 | EDPHYS ---
Physician Documentation [facility] Name: Jatinder Romero Age: 28 yrs Sex: Male : 1990 Arrival Date: 07/08/2018 Time: 21:01 Bed 13 Private MD: ED Physician Albert Jade HPI: 07/08 22:31 This 28 yrs old Male presents to ER via EMS with complaints of Abdominal Pain, snw Nausea/Vomiting. 22:31 The patient presents with abdominal pain in the lower abdomen, that is diffuse. Onset: snw The symptoms/episode began/occurred suddenly, at 13:00. The symptoms radiate to right leg. Associated signs and symptoms: Pertinent positives: nausea and vomiting. The symptoms are described as intermittent, sharp, stabbing. Severity of pain: At its worst the pain was incapacitating in the emergency department the pain is unchanged. The patient has not experienced similar symptoms in the past. It is unknown whether or not the patient has recently seen a physician. Historical: - Allergies: 21:07 No Known Allergies; tl2 - Home Meds: 21:07 None [Active]; tl2 - PMHx: 21:07 None; tl2 - PSHx: 21:07 Cholecystectomy; tl2 - Immunization history:: Adult Immunizations up to date. - Social history:: Smoking status: Patient/guardian denies using tobacco, Patient uses street drugs, marijuana. - Ebola Screening: : No symptoms or risks identified at this time. ROS: 22:30 Eyes: Negative for injury, pain, redness, and discharge, ENT: Negative for injury, snw pain, and discharge, Neck: Negative for injury, pain, and swelling, Cardiovascular: Negative for chest pain, palpitations, and edema, Respiratory: Negative for shortness of breath, cough, wheezing, and pleuritic chest pain, Back: Negative for injury and pain, : Negative for injury, bleeding, discharge, and swelling, MS/Extremity: Negative for injury and deformity, Skin: Negative for injury, rash, and discoloration, Neuro: Negative for headache, weakness, numbness, tingling, and seizure. 22:30 Constitutional: Positive for body aches, chills, malaise, poor PO intake. 22:30 Abdomen/GI: Positive for abdominal pain, nausea and vomiting, abdominal cramps, of the right upper quadrant and right lower quadrant. Exam: 22:17 Head/Face: Normocephalic, atraumatic. Eyes: Pupils equal round and reactive to light, snw extra-ocular motions intact. Lids and lashes normal. Conjunctiva and sclera are non-icteric and not injected. Cornea within normal limits. Periorbital areas with no swelling, redness, or edema. ENT: Nares patent. No nasal discharge, no septal abnormalities noted. Tympanic membranes are normal and external auditory canals are clear. Oropharynx with no redness, swelling, or masses, exudates, or evidence of obstruction, uvula midline. Mucous membranes moist. Neck: Trachea midline, no thyromegaly or masses palpated, and no cervical lymphadenopathy. Supple, full range of motion without nuchal rigidity, or vertebral point tenderness. No Meningismus. Chest/axilla: Normal chest wall appearance and motion. Nontender with no deformity. No lesions are appreciated. Cardiovascular: Regular rate and rhythm with a normal S1 and S2. No gallops, murmurs, or rubs. Normal PMI, no JVD. No pulse deficits. 22:17 Back: No spinal tenderness. No costovertebral tenderness. Full range of motion. 22:17 Constitutional: The patient appears alert, awake, anxious, in obvious distress, restless, uncomfortable, hyperventilating, vomiting, diaphoretic 22:17 Respiratory: the patient does not display signs of respiratory distress, Respirations: shallow respirations, tachypnea, that is severe, Breath sounds: are clear throughout. 22:17 Abdomen/GI: Bowel sounds: normal, in all quadrants, vomited x several times. 22:17 Skin: Appearance: normal except for affected area, Temperature: normal temperature, Moisture: diaphoretic. 23:00 ECG was reviewed by the Attending Physician. cp Vital Signs: 21:07 BP 138 / 96; Pulse 122; Resp 30; Temp 98.6(O); Pulse Ox 100% on R/A; Weight 122.47 kg; tl2 Height 5 ft. 11 in. (180.34 cm); Pain 10/10; 21:28 BP 138 / 96; Pulse 108; Resp 18; Pulse Ox 99% on R/A; tl2 21:54 Pulse 101; Resp 24; Pulse Ox 100% on R/A; tl2 22:30 BP 130 / 85; Pulse 112; Resp 24; Pulse Ox 100% on R/A; tl2 23:33 BP 136 / 100; Pulse 94; Resp 22; Temp 98.3(O); Pulse Ox 100% on R/A; tl2 07/09 00:52 BP 150 / 106; Pulse 98; Resp 18; Pulse Ox 96% on R/A; Pain 2/10; tl2 01:28 BP 136 / 92; Pulse 95; Resp 18; Pulse Ox 98% on R/A; tl2 02:14 BP 148 / 94; Pulse 93; Resp 20; Pulse Ox 98% on R/A; tl2 07/08 21:07 Body Mass Index 37.66 (122.47 kg, 180.34 cm) tl2 MDM: 07/08 21:19 Patient medically screened. snw 22:28 Data reviewed: vital signs, nurses notes. Data interpreted: Pulse oximetry: on room air snw is 100 %. Interpretation: normal. Counseling: I had a detailed discussion with the patient and/or guardian regarding: the historical points, exam findings, and any diagnostic results supporting the discharge/admit diagnosis, the presence of at least one elevated blood pressure reading (>120/80) during this emergency department visit, lab results, radiology results. Response to treatment: the patient's symptoms have markedly improved after treatment. ED course: IV infiltrated, pain improved. Restarted PIV to left hand, bolus continues. Repeat CBC, C7 and added blood cultures. Awaiting CT reading.. 22:42 Awaiting: repeat labs. snw 22:42 ED course: CT stone negative. Will redraw CBC and C7, CPK now that pt is more calm. . w 07/09 01:56 ED course: VSS. Patient reports he is feeling better. Vomiting resolved and patient cp tolerating po fluids. 07/08 21:07 Order name: Basic Metabolic Panel snw 07/08 21:07 Order name: CBC with Diff snw 07/08 21:07 Order name: Creatinine for Radiology snw 07/08 21:07 Order name: Hepatic Function; Complete Time: 22:51 snw 07/08 21:07 Order name: Lipase; Complete Time: 22:51 snw 07/08 21:08 Order name: Basic Metabolic Panel; Complete Time: 22:51 EDMS 07/08 21:09 Order name: CBC with Automated Diff; Complete Time: 22:15 EDMS 07/08 21:09 Order name: Creatinine (Radiology Only); Complete Time: 21:51 EDMS 07/08 22:05 Order name: CBC Smear Scan; Complete Time: 22:15 EDMS 07/08 22:30 Order name: CBC with Diff; Complete Time: 22:47 snw 07/08 22:30 Order name: Chem 7; Complete Time: 23:09 snw 07/08 22:30 Order name: Blood Culture Adult ([facility] 07/08 22:39 Order name: UDS; Complete Time: 01:55 snw 07/09 01:55 Interpretation: Normal except: THC POSITIVE. cp 07/08 21:07 Order name: IV Saline Lock; Complete Time: 21:28 snw 07/08 21:07 Order name: Labs collected and sent; Complete Time: 21:28 snw 07/08 21:07 Order name: CT Stone Protocol [facility] 07/08 22:54 Order name: Creatine Phosphokinase; Complete Time: 23:09 EDMS EC/25 23:00 Rate is 111 beats/min. Rhythm is regular. TX interval is normal. QRS interval is cp normal. QT interval is normal. Interpreted by me. Reviewed by me. Administered Medications: 21:54 Drug: NS 0.9% 1000 ml Route: IV; Rate: 1 bolus; Site: right antecubital; tl2 07/09 02:17 Follow up: IV Status: Completed infusion; IV Intake: 1000ml 2 07/08 21:54 Drug: TORadol 30 mg Route: IVP; Site: right antecubital; tl2 22:30 Follow up: Response: No adverse reaction; Pain is unchanged, physician notified tl2 22:46 Drug: fentaNYL (PF) 50 mcg Route: IVP; Site: left hand; tl2 23:37 Follow up: Response: No adverse reaction; Pain is decreased tl2 23:08 Drug: Flomax 0.4 mg Route: PO; 07/09 00:00 Follow up: Response: No adverse reaction 2 07/08 23:08 Drug: NS 0.9% 2000 ml Route: IV; Rate: 1 bolus; Site: left hand; tl2 07/09 02:18 Follow up: IV Status: Completed infusion; IV Intake: 1000ml tl2 07/08 23:37 Drug: Cipro 400 mg Volume: 200 ml; Route: IVPB; Infused Over: 60 mins; Site: left hand; tl2 07/09 00:40 Follow up: IV Status: Completed infusion; IV Intake: 200ml tl2 Disposition: 06:28 Co-signature as Attending Physician, Albert Jade MD. lise Disposition: 07/09/18 01:57 Discharged to Home. Impression: Generalized abdominal pain, Dehydration, Hyperventilation, Acute kidney injury. - Condition is Stable. - Discharge Instructions: Abdominal Pain, Adult, Dehydration, Adult, Hyperventilation, Rehydration, Adult. - Prescriptions for Zofran 4 mg Oral Tablet - take 1 tablet by ORAL route every 12 hours As needed; 20 tablet. - Work release form, Medication Reconciliation Form, Thank You Letter, Antibiotic Education, Prescription Opioid Use form. - Follow up: Private Physician; When: 2 - 3 days; Reason: Recheck today's complaints, Continuance of care, Re-evaluation by your physician. Follow up: Emergency Department; When: As needed; Reason: Worsening of condition. Signatures: Dispatcher [employer] EDMA Albert Jade MD MD pk Funmi Brand, REAL TIME OPERATOR-C REAL TIME OPERATOR-Csnw Bautista Drew PA PA cp Knox, Taylor, RN RN tl2 Corrections: (The following items were deleted from the chart) 07/08 22:43 22:40 CREATINE PHOSPHOKINASE+[id number].LAB.BRZ ordered. [facility] 22:54 22:43 Creatine Phosphokinase ordered. [facility] 07/09 02:18 01:57 07/09/2018 01:57 Discharged to Home. Impression: Generalized abdominal pain; tl2 Dehydration; Hyperventilation; Acute kidney injury. Condition is Stable. Discharge Instructions: Abdominal Pain, Adult, Dehydration, Adult, Hyperventilation, Rehydration, Adult. Forms are Work release form, Medication Reconciliation Form, Thank You Letter, Antibiotic Education, Prescription Opioid Use. Follow up: Private Physician; When: 2 - 3 days; Reason: Recheck today's complaints, Continuance of care, Re-evaluation by your physician. Follow up: Emergency Department; When: As needed; Reason: Worsening of condition. cp
--- NOTE | 2018-07-09 01:58 | ER ---
Nurse's Notes [facility] Name: Jatinder Romero Age: 28 yrs Sex: Male : 1990 Arrival Date: 07/08/2018 Time: 21:01 Bed 13 Private MD: Diagnosis: Generalized abdominal pain;Dehydration;Hyperventilation;Acute kidney injury Presentation: 07/08 21:06 Presenting complaint: Patient states: Starting having severe abdominal pain approx 7 tl2 hours ago that causes pain all over, reports episodes of vomiting. Transition of care: patient was not received from another setting of care. Onset of symptoms was July 08, 2018. Risk Assessment: Do you want to hurt yourself or someone else? Patient reports no desire to harm self or others. Initial Sepsis Screen: Does the patient meet any 2 criteria? RR > 20 per min. HR > 90 bpm. Does the patient have a suspected source of infection? No. Patient's initial sepsis screen is negative. Care prior to arrival: None. 21:06 Method Of Arrival: EMS: [facility] 21:06 Acuity: ADRIA 3 tl2 Triage Assessment: 21:07 General: Appears distressed, uncomfortable, Behavior is cooperative, appropriate for tl2 age, anxious. Pain: Complains of pain in abdomen Pain radiates to radiates all over body. Neuro: Level of Consciousness is awake, alert, obeys commands, Oriented to person, place, time, situation. Cardiovascular: Denies chest pain. Respiratory: Airway is patent Respiratory effort is even, unlabored, Respiratory pattern is symmetrical, tachypnea. GI: Abdomen is non-distended, Reports lower abdominal pain, upper abdominal pain, nausea, vomiting. : No signs and/or symptoms were reported regarding the genitourinary system. Derm: Skin is clammy, Skin is pale. Historical: - Allergies: 21:07 No Known Allergies; tl2 - Home Meds: 21:07 None [Active]; tl2 - PMHx: 21:07 None; tl2 - PSHx: 21:07 Cholecystectomy; tl2 - Immunization history:: Adult Immunizations up to date. - Social history:: Smoking status: Patient/guardian denies using tobacco, Patient uses street drugs, marijuana. - Ebola Screening: : No symptoms or risks identified at this time. Screenin:10 Abuse screen: Denies threats or abuse. Nutritional screening: No deficits noted. tl2 Tuberculosis screening: No symptoms or risk factors identified. Fall Risk None identified. Assessment: 21:10 General: see triage assessment. tl2 21:10 GI: Bowel sounds present X 4 quads. Abd is soft Abdomen is tender to palpation X 4 tl2 quads. 22:30 Reassessment: Patient appears in no apparent distress at this time. Patient and/or tl2 family updated on plan of care and expected duration. Pain level reassessed. Patient is alert, oriented x 3, equal unlabored respirations, skin warm/dry/pink. continuing to c/o pain. 07/09 00:15 Reassessment: Patient appears in no apparent distress at this time. Patient and/or tl2 family updated on plan of care and expected duration. Pain level reassessed. Patient is alert, oriented x 3, equal unlabored respirations, skin warm/dry/pink. Will notify PA for dispo after 2 L and Cipro are completed. Awaiting UDS results. 01:30 Reassessment: Patient appears in no apparent distress at this time. Patient and/or tl2 family updated on plan of care and expected duration. Pain level reassessed. Patient is alert, oriented x 3, equal unlabored respirations, skin warm/dry/pink. awaiting dispo. 02:12 Reassessment: Patient appears in no apparent distress at this time. Patient and/or tl2 family updated on plan of care and expected duration. Pain level reassessed. Patient is alert, oriented x 3, equal unlabored respirations, skin warm/dry/pink. pt verbalized understanding of discharge instructions, need for follow up and prescription usage Patient denies pain at this time. Patient states feeling better. Vital Signs: 07/08 21:07 BP 138 / 96; Pulse 122; Resp 30; Temp 98.6(O); Pulse Ox 100% on R/A; Weight 122.47 kg; tl2 Height 5 ft. 11 in. (180.34 cm); Pain 10/10; 21:28 BP 138 / 96; Pulse 108; Resp 18; Pulse Ox 99% on R/A; tl2 21:54 Pulse 101; Resp 24; Pulse Ox 100% on R/A; tl2 22:30 BP 130 / 85; Pulse 112; Resp 24; Pulse Ox 100% on R/A; tl2 23:33 BP 136 / 100; Pulse 94; Resp 22; Temp 98.3(O); Pulse Ox 100% on R/A; tl2 07/09 00:52 BP 150 / 106; Pulse 98; Resp 18; Pulse Ox 96% on R/A; Pain 2/10; tl2 01:28 BP 136 / 92; Pulse 95; Resp 18; Pulse Ox 98% on R/A; tl2 02:14 BP 148 / 94; Pulse 93; Resp 20; Pulse Ox 98% on R/A; tl2 07/08 21:07 Body Mass Index 37.66 (122.47 kg, 180.34 cm) tl2 ED Course: 07/08 21:01 Patient arrived in ED. am2 21:06 Funmi Brand FNP-C is PHCP. snw 21:06 Albert Jade MD is Attending Physician. snw 21:07 Triage completed. tl2 21:07 Arm band placed on right wrist. tl2 21:10 Patient has correct armband on for positive identification. Placed in gown. Bed in low tl2 position. Call light in reach. Side rails up X2. 21:10 EKG done, by ED staff, reviewed by Albert Jade MD. tl2 21:11 Laura Ruiz, NATALEE is Primary Nurse. tl2 21:28 Inserted saline lock: 20 gauge in right antecubital area, using aseptic technique. tl2 Blood collected. 21:53 CT Stone Protocol In Process Unspecified. EDMS 22:30 IV is swollen, with fluids not infusing freely, IV discontinued, intact, bleeding tl2 controlled, No redness/swelling at site. Pressure dressing applied. 22:46 Inserted saline lock: 20 gauge in left hand, using aseptic technique. Blood collected. tl2 placed by OZZIE Choudhary. 22:55 PHCP role handed off by Funmi Brand FNP-C cp 22:55 Bautista Drew PA is PHCP. cp 07/09 01:30 No provider procedures requiring assistance completed. tl2 02:16 IV discontinued, intact, bleeding controlled, No redness/swelling at site. Pressure tl2 dressing applied. Administered Medications: 07/08 21:54 Drug: NS 0.9% 1000 ml Route: IV; Rate: 1 bolus; Site: right antecubital; tl2 07/09 02:17 Follow up: IV Status: Completed infusion; IV Intake: 1000ml 2 07/08 21:54 Drug: TORadol 30 mg Route: IVP; Site: right antecubital; tl2 22:30 Follow up: Response: No adverse reaction; Pain is unchanged, physician notified tl2 22:46 Drug: fentaNYL (PF) 50 mcg Route: IVP; Site: left hand; tl2 23:37 Follow up: Response: No adverse reaction; Pain is decreased tl2 23:08 Drug: Flomax 0.4 mg Route: PO; tl2 07/09 00:00 Follow up: Response: No adverse reaction 2 07/08 23:08 Drug: NS 0.9% 2000 ml Route: IV; Rate: 1 bolus; Site: left hand; tl2 07/09 02:18 Follow up: IV Status: Completed infusion; IV Intake: 1000ml 2 07/08 23:37 Drug: Cipro 400 mg Volume: 200 ml; Route: IVPB; Infused Over: 60 mins; Site: left hand; tl2 07/09 00:40 Follow up: IV Status: Completed infusion; IV Intake: 200ml tl2 Intake: 00:40 IV: 200ml; Total: 200ml. tl2 02:17 IV: 1000ml; Total: 1200ml. tl2 02:18 IV: 1000ml; Total: 2200ml. tl2 Outcome: 01:57 Discharge ordered by MD. cp 02:15 Discharged to home ambulatory, with friend. tl2 02:15 Condition: stable 02:15 Discharge instructions given to patient, Instructed on discharge instructions, follow up and referral plans. medication usage, Demonstrated understanding of instructions, follow-up care, medications, Prescriptions given X 1. 02:18 Patient left the ED. tl2 Signatures: Dispatcher [employer] EDMS Funmi Brand FNP-C PARASITOLOGIST-Bautista Valente PA PA cp Knox, Taylor, RN RN tl2 Neda Jordan am2 Corrections: (The following items were deleted from the chart) 02:14 01:30 BP 148 / 94; Pulse 93bpm; Resp 20bpm; Pulse Ox 98% RA; tl2 tl2
--- NOTE | 2018-07-09 10:07 | EKG ---
Test Date: 2018-07-08 Test Time: 21:09:20 Ssis Architect: MEASUREMENT RESULTS: Intervals: Rate: 111 NE: 156 QRSD: 78 QT: 346 QTc: 470 [place]: P: 43 NE: 156 QRS: 78 T: 39 INTERPRETIVE STATEMENTS: Sinus tachycardia Otherwise normal ECG No previous ECG available for comparison Electronically Signed On 07-09-18 10:05:23 CDT by Aakash Vides
--- NOTE | 2018-07-11 11:12 | RAD REPORT ---
EXAM DESCRIPTION: CT - Stone Protocol - 07/08/2018 10:14 pm CLINICAL HISTORY: Flank pain. COMPARISON: None. TECHNIQUE: CT scan of the abdomen and pelvis was performed without IV contrast. This exam was perfor med according to our departmental dose-optimization program, which includes automated exposure contro l, adjustment of the mA and/or kV according to patient size and/or use of iterative reconstruction te chnique. FINDINGS: The lung bases are clear. No pleural or pericardial effusions. There is no hiatal hernia. There has been a prior cholecystectomy. The liver, spleen, pancreas, adrenal glands, and kidneys are normal without hydronephrosis. No urinary stones are seen. The pelvic organs are normal. No small bowel obstruction. The appendix is normal. There is no evidence of diverticulitis. No intrap eritoneal free fluid or free air is identified. The aorta is normal caliber. No acute osseous findings are appreciated. No pathologic body wall herni a is seen. IMPRESSION: No acute abdominal or pelvic pathology. Electronically signed by: Israel Elizabeth MD 07/08/2018 10:01 PM CDT Due to temporary technical issues with the PACS/Fluency reporting system, reports are being signed by the in house radiologist as a courtesy to ensure prompt reporting. The interpreting radiologist is f ully responsible for the content of the report.
== END 2018-07-09 02:18 | disposition home or self-care (01) ==
LOC: ER 20:51
DX: E86.0 Dehydration (principal); R06.4 Hyperventilation; N17.9 Acute kidney failure, unspecified
CPT/HCPCS: 36415; 74176; 76377; 80048; 80076; 80307; 82550; 83690; 85025; 87040; 93005; 99284; J0744; J3010; J7030